=== PATIENT | male | born 1980 | race Two or more races ===

== ENCOUNTER 2024-07-30 18:12 | Inpatient (IN) | payer MEDICAID, SELFPAY ==
[2024-07-30 18:13] VITALS: BMI 30.6
[2024-07-30 18:59] VITALS: BP 165/88; PULSE 81; RESP 17; TEMP 37.2; O2SAT 99
--- NOTE | 2024-07-30 19:15 | XR_ITS ---
Examination: Shoulder,left, 3 views Technique: Shoulder AP internal rotation, AP external rotation, Y view shoulder, 3 views Exam date and time :July 30, 2024 1924 hours INDICATIONS: Seizure today with injury of the shoulder, shoulder pain. FINDINGS: Acute comminuted fracture humeral neck without significant displacement No shoulder dislocation IMPRESSION: Acute comminuted fracture humeral neck
--- NOTE | 2024-07-30 19:15 | XR_ITS ---
Examination: CT brain head without contrast. 2-D sagittal coronal reconstructions Date and time of exam:July 30, 2024 at 2027 hours INDICATIONS: Seizure today, patient fell with injury to the head, head pain CTDI: vol (mGy):52 DLP: (mGycm):1028 Technique: Multiple CT axial sections of the brain have been obtained, 5 mm slice thickness. Contrast has not been administered. 2-D sagittal, coronal reconstructions have been obtained Low dose protocols were performed. One or more of the following dose reduction techniques were used; automated exposure control, adjustment of the mA and/or KV according to patient size, use of iterative reconstruction technique. Findings: No significant ventricular enlargement. Intra-axial or extra-axial hemorrhage density is not seen. No mass effect or midline shift Basal cisterns are not remarkable. Fourth ventricle is midline. Cranial vault intact. Impression: Negative for acute hemorrhage, mass effect or midline shift
[2024-07-30 19:54] LABS: Amphetamine/Methamp Scrn,U Negative (Negative); Barbiturate Screen,Urine Negative (Negative); Benzodiazepines Screen,Urine Negative (Negative); Benzoylecgonine Screen, Ur Negative (Negative); Fentanyl Screen,Urine Negative (Negative); Opiate Screen,Urine Negative (Negative); THC Screen,Urine Negative (Negative)
[2024-07-30 19:54] LABS: Basophils % (Auto) 0 % (0-2.5); Eosinophils % (Auto) 0 % (0-10); Hemoglobin 13.9 g/dL (13.5-16.0); Immature Granulocytes % (Auto) 0 % (0-0); Immature Granulocytes Auto 0.03 Thou/mm3 (0.00-0.00); Lymphocytes # (Auto) 0.5 Thou/mm3 (1.0-4.8); Lymphocytes % (Auto) 6 % (10-50); Mean Corpuscular HGB Conc 35.6 g/dl (31.0-37.0); Mean Corpuscular Hemoglobin 33.2 pg (25.0-35.0); Mean Corpuscular Volume 93 fL (80-100); Monocytes # (Auto) 0.7 Thou/mm3 (0.0-0.8); Monocytes % (Auto) 8 % (0-12); Neutrophils # (Auto) 7.9 Thou/mm3 (1.8-7.7); Neutrophils % (Auto) 86 % (37-80); Nucleated Red Blood Cell % 0 /100 WBC (0); Platelet Count 116 Thou/mm3 (140-440); RDW Standard Deviation 38.8 fL (35.1-43.9); Red Blood Count 4.19 Miln/mm3 (4.50-5.90); White Blood Count 9.3 Thou/mm3 (3.8-10.6)
[2024-07-30 20:25] LABS: Alanine Aminotransferase 75 U/L (10-49); Albumin, Serum 5.2 gm/dL (3.5-5.0); Albumin/Globulin Ratio 1.7 (1.2-2.2); Alcohol, Blood Medical < 3.0 mg/dL (0-10.0); Alkaline Phosphatase 107 U/L (46-116); Ammonia < 10 uMol/L (11-32); Anion Gap 15 (7-16); Aspartate Amino Transferase 91 U/L (0-34); BUN/Creatinine Ratio 8 Ratio (12-20); Bilirubin,Total 1.7 mg/dL (0.3-1.2); Blood Urea Nitrogen 11 mg/dL (9-23); Calcium 9.5 mg/dL (8.3-10.6); Calcium (Corrected) 9.5 mg/dL (8.5-10.1); Carbon Dioxide 28.7 mMol/L (20.0-31.0); Chloride 94 mMol/L (98-107); Creatinine (Component) 1.3 mg/dL (0.6-1.3); Estimated Creatinine Clearance 74.3 mL/min (>60); Glucose 127 mg/dL (74-106); Osmolality,Calculated 277 (275-295); Potassium 4.1 mMol/L (3.4-5.1); Sodium 138 mMol/L (136-145); Total Protein 8.2 gm/dL (5.7-8.2); eGFR > 60 See Note
[2024-07-30 20:31] LABS: INR 1.1 (0.9-1.3); Partial Thromboplastin Time 26.8 Seconds (22.0-36.0); Prothrombin Time 11.8 Seconds (9.0-12.2)
--- NOTE | 2024-07-30 20:51 | EDNOTE_ITS ---
Upper Extremity Injury RME/HPI General Chief Complaint: Extremity Injury, Upper Stated Complaint: LEFT ARM DEFORMITY S/P SEIZURE TODAY Time Seen by Provider: 07/30/24 19:18 Arrival date/time: 07/30/24 18:12 43M with history of alcoholic cirrhosis, HTN, DM, and HLD presents to ED with alcoholic seizures today where he fell and hit his L shoulder. Limitations: no limitations Related Data Home Medications ?Medication ?Instructions ?Recorded ?Confirmed hydrochlorothiazide 50 mg tablet 50 mg PO QDAY 3 07/15/23 lisinopril 40 mg tablet 40 mg PO QDAY 10/25/2207/14 metformin 1,000 mg tablet 1,000 mg PO BID 10/25/22 atorvastatin 20 mg tablet 20 mg PO QDAY 07/15/2307/14 hydralazine 25 mg tablet 25 mg PO QID 07/15/23 Previous Rx's ?Medication ?Instructions ?Recorded folic acid 1 mg tablet 1 mg PO QDAY 3 months #90 ta bs 07/17/23 thiamine HCl (vitamin B1) 100 mg 100 mg PO QDAY 3 giovanna hs #90 tabs 07/17/23 tablet Allergies Allergy/AdvReac Type Severity Reaction Status Date / Time No Known Allergies Allergy Verified 07/30/24 18:15 Review of Systems Review of Systems Systems Reviewed: All systems reviewed, normal except as documented Constitutional Constitutional: Reports system reviewed and no additional complaints, except as documented, Denies fever(s) and Denies headache(s) ENT Ears, Nose, Mouth, and Throat: Denies disequilibrium and Denies headache(s) Cardiovascular Cardiovascular: Reports system reviewed and no additional complaints, except as documented, Denies chest pain and Denies dyspnea Respiratory Respiratory: Reports system reviewed and no additional complaints, except as documented, Denies cough and Denies dyspnea Gastrointestinal Gastrointestinal: Reports system reviewed and no additional complaints, except as documented, Denies abdominal pain, Denies nausea and Denies vomiting Musculoskeletal Musculoskeletal: Reports as per HPI and Reports arthralgias Neurologic Neurologic: Reports system reviewed and no additional complaints, except as documented, Denies confusion, Denies disequilibrium, Denies headache(s) and Reports seizure-like activity Psychiatric Psychiatric: Denies confusion Past Medical History Past Medical History NEUROLOGIC: Positive Seizures CARDIAC: Positive Hypercholesterolemia and Hypertension; Negative Congestive Heart Failure RESPIRATORY: Negative Chronic Obstructive Pulmonary Disease (COPD) GENITOURINARY: Negative Renal Disease ENDOCRINE: Positive Diabetes Mellitus Type 2; Negative Diabetes Mellitus Type 1 Social History SMOKING STATUS: Never smoker ED Exam General Limitations: Present no limitations General appearance: Present alert, in no apparent distress and anxious (tremors) Head Head exam: Present atraumatic Eye Eye exam: Present normal appearance, PERRL and EOMI ENT ENT exam: Present normal exam, normal oropharynx and mucous membranes moist Neck Neck exam: Present normal inspection, full ROM and trachea midline Chest Chest inspection: Present normal inspection and symmetric chest wall rise Respiratory Respiratory exam: Present normal lung sounds bilaterally Cardiovascular Cardiovascular exam: Present regular rate, normal rhythm and normal heart sounds Abdominal Exam Abdominal exam: Present soft and normal bowel sounds Expanded Upper Extremity Exam Shoulder exam: Present tenderness (L) Back Exam Back exam: Present normal inspection and full ROM Neurological Exam Neurological exam: Present alert, oriented X3 and CN II-XII intact Psychiatric Psychiatric exam: Present normal affect and normal mood Skin Skin exam: Present warm, dry, intact and normal color Course Quality Measures none Orders Category Date Time Status COVID-19 Screening Questionnaire NOW Care 07/30/24 22:21 Active Decision to Admit X1 Care 07/30/24 22:21 Completed Insert IV NOW Care 07/30/24 19:[address] head/brain wo con Stat Exams 07/30/24 19:15 Completed XR shoulder LT min 2V Stat Exams 07/30/24 19:15 Completed Alcohol, Blood Medical Stat Lab 07/30/24 19:45 Completed Ammonia Stat Lab 07/30/24 19:45 Completed CBC Stat Lab 07/30/24 19:45 Completed CMP [Comprehensive Metabolic Panel] Stat Lab 07/30/24 19:45 Completed Drug Screen,Urine Stat Lab 07/30/24 19:40 Completed INR [Prothrombin Time with INR] Stat Lab 07/30/24 19:45 Completed Lactate (Lactic Acid) Stat Lab 07/30/24 19:45 Completed PTT [Partial Thromboplastin Time] Stat Lab 07/30/24 19:45 Completed LORazepam [Ativan Inj] Med 07/30/24 19:15 Discontinued 2 mg IVP X1 ONE Morphine Inj Med 07/30/24 22:13 Discontinued 5 mg IVP X1 ONE Ondansetron Inj [Zofran Inj] Med 07/30/24 22:13 Discontinued 4 mg IV X1 ONE Thiamine Inj [Vitamin B-1 Inj] Med 07/30/24 20:00 Discontinued 100 mg IVP X1 ONE Thiamine Inj [Vitamin B-1 Inj] 100 mg Med 07/30/24 19:50 Discontinued Sodium Chloride 0.9% [Ns] 100 ml IV X1 Vital Signs Vital signs: Vital Signs Temperature 98.9 F 07/30/24 18:59 Pulse Rate 81 07/30/24 18:59 Respiratory Rate 17 07/30/24 18:59 Blood Pressure 165/88 H 07/30/24 18:59 Pulse Oximetry (%) 99 07/30/24 18:59 Oxygen Delivery Method Room Air 07/30/24 18:59 O2 at 99% on RA and WNLs Extremity Injury MDM Narrative MDM Narrative:: 43M with history of alcoholic cirrhosis, HTN, DM, and HLD presents to ED with alcoholic seizures today where he fell and hit his L shoulder. Physical exam reveals generalized tremors. L shoulder tenderness and reduced ROM. Patient is afebrile, alert, but anxious. XR reveals L humeral neck fx. CBC, CMP , and coags unremarkable. Lactate normal. Alcohol/drug screen normal. Spoke to padmini Waters, who states humeral neck fx can be handled outpatient and just to give sling. CIWA 11. Spoke to IM resident who reports to Dr. Salcido, who will admit for alcohol withdrawal. Patient data External records reviewed:: [facility] previous records Clinical information provided by:: patient Social determinants that could affect healthcare access:: alcohol use Patient has the following chronic illnesses:: alcoholic cirrhosis, HTN, DM, and HLD How is presenting disease/condition affected by chronic disease/condition?: caused by Evaluation data The following diagnostics were reviewed and interpreted by me:: lab results and radiology exam(s) Lab and/or radiology exams considered but not ordered:: ordered Interpretation Summary: above Medications / Prescriptions Medications or Prescriptions considered but not ordered:: ordered Medication administrations:: Medication Administration History Acetaminophen (Acetaminophen 325 Mg Tablet) 650 mg PO Q6H PRN PRN Reason: Fever >99.5 Stop: 08/29/24 22:58 Acetaminophen (Acetaminophen 325 Mg Tablet) 1,000 mg PO Q6H PRN PRN Reason: PAIN SCALE 1-3 (mild Stop: 08/29/24 22:58 Hydrocodone Bitart/Acetaminophen (Hydrocodone/Apap 5/325 Tablet) 1 tab PO Q6HR PRN PRN Reason: PAIN SCALE 4-10(Mod-Sev Stop: 08/04/24 23:08 Last Admin: 07/30/24 23:37 Dose: 1 tab Documented By: TOMÁS Atorvastatin Calcium (Atorvastatin Calcium 20 Mg Tablet) 20 mg PO HS [facility] Stop: 08/30/24 20:59 Dextrose (Dextrose 50%-Water Inj 50 Ml Syringe) 25 ml IV Q15MIN PRN PRN Reason: BG 50-70 responsive npo pt Stop: 08/29/24 23:02 Dextrose (Dextrose 50%-Water Inj 50 Ml Syringe) 50 ml IV Q15MIN PRN PRN Reason: BG <50 OR BG <70 & pt unresponsive Stop: 08/29/24 23:02 Folic Acid (Folic Acid 1 Mg Tablet) 1 mg PO BID [facility] Stop: 08/05/24 08:59 Glucagon (Glucagon Inj 1 Mg Vial) 1 mg IM Q15MIN PRN PRN Reason: BG <70, and no IV access Insulin Human Lispro (Insulin Lispro (Admelog) 1 Unit/0.01 Ml Unit) 0 unit SC AC [facility]; Protocol Stop: 08/30/24 07:29 Lisinopril (Lisinopril 20 Mg Tablet) 20 mg PO QDAY [facility] Stop: 08/30/24 08:59 Lorazepam (Lorazepam 0.5 Mg Tablet) 0.5 mg PO Q4HR PRN PRN Reason: CIWA Score 2-6 Stop: 08/04/24 22:58 Lorazepam (Lorazepam 2 Mg/Ml Vial) 0.5 mg IV Q2HR PRN PRN Reason: CIWA SCORE 7-13 Stop: 08/04/24 22:58 Lorazepam (Lorazepam 2 Mg/Ml Vial) 1 mg IV Q2HR PRN PRN Reason: CIWA SCORE 14-19 Stop: 08/04/24 22:58 Lorazepam (Lorazepam 2 Mg/Ml Vial) 2 mg IV Q2HR PRN PRN Reason: CIWA SCORE 20-25 Stop: 08/04/24 22:58 Morphine Sulfate (Morphine Sulf Inj 10 Mg/Ml Vial) 2 mg IVP Q4H PRN PRN Reason: BREAKTHROUGH PAIN Ondansetron HCl (Ondansetron Inj 2 Mg/Ml Inj 2 Ml) 4 mg IVP Q6H PRN; Protocol PRN Reason: NAUSEA OR VOMITING Stop: 08/29/24 22:58 Thiamine HCl (Thiamine 100 Mg Tablet) 100 mg PO BID [facility] Stop: 08/05/24 08:59 Discontinued Medications Thiamine HCl 100 mg/ Sodium (Chloride) 101 mls @ 202 mls/hr IV X1 ONE Stop: 07/30/24 20:19 Last Admin: 07/30/24 22:03 Dose: Not Given Documented By: TOMÁS Non-Admin Reason: Discontinued Lorazepam (Lorazepam 2 Mg/Ml Vial) 2 mg IVP X1 ONE Stop: 07/30/24 19:16 Last Admin: 07/30/24 22:29 Dose: 2 mg Documented By: TOMÁS Morphine Sulfate (Morphine Sulf Inj 10 Mg/Ml Vial) 5 mg IVP X1 ONE Stop: 07/30/24 22:14 Last Admin: 07/30/24 22:29 Dose: 5 mg Documented By: TOMÁS Comments: MEDICATION WAS SCANNED BUT WHEN ATTEMPTING TO SAVE, UNABLE TO SAVE DUE TO PHYSICIAN IN CHART. Ondansetron HCl (Ondansetron Inj 2 Mg/Ml Inj 2 Ml) 4 mg IV X1 ONE; Protocol Stop: 07/30/24 22:14 Last Admin: 07/30/24 22:29 Dose: 4 mg Documented By: TOMÁS Thiamine HCl (Thiamine Inj 100 Mg/Ml Vial 2 Ml) 100 mg IVP X1 ONE Stop: 07/30/24 20:01 Last Admin: 07/30/24 22:30 Dose: 100 mg Documented By: TOMÁS above Consultations Consultation(s) initiated? (list below): Yes Diagnosis Upper Extremity Injury Differential Diagnosis: sprain and strain of wrist, fracture of wrist, finger sprain, dislocation of finger, Colles' fracture, fracture of hand, dislocation of shoulder, fracture of humerus, fracture of clavicle and other (alcohol withdrawal) Most likely diagnosis given after review of the tests above:: humerus fx, alcohol withdrawal Admission Indicated Admission indicated?: indicated Admission Request Was there a request for admission?: Yes Admission Attestation Admission request attestation: Discussed case with [Dr. Salcido] from Hospitalist service regarding admission. Discussed patients ED course, exam findings, labs, and radiology results. The H ospitalist [agrees] to accept the patient for admission. Disposition Plan Disposition Plan: Admit Discharge Plan Plan Patient Disposition: Admit Acute Care w/in Hospital Problem List Clinical Impression: Alcohol withdrawal seizure, Fracture, humerus
[2024-07-30 22:03] VITALS: BP 152/96; PULSE 93; RESP 22; TEMP 37; O2SAT 98
[2024-07-30] MEDS: ONDANSETRON INJ 2 MG/ML INJ 2 ML 4 MG IV (22:29)
[2024-07-30] MEDS: MORPHINE SULF INJ 10 MG/ML VIAL 5 MG IVP (22:29)
[2024-07-30] MEDS: LORazepam 2 MG/ML VIAL IVP (22:29)
[2024-07-30] MEDS: THIAMINE INJ 100 MG/ML VIAL 2 ML IVP (22:30)
--- NOTE | 2024-07-30 23:07 | PD.RESHP ---
Documentation for date of: 07/30/24 HPI History of Present Illness Chief complaint: Seizure History of present illness: 43-year-old male with past medical history of hypertension, diabetes, hyperlipidemia, alcohol use disorder who presented to the ED due to seizure. Patient usually drinks around 12 packs of 24 ounce beers however today he only drank 1 beer trying to cut down and developed a seizure around 2 PM no urinary or bowel incontinence however tongue biting was endorsed had a fall and hit his shoulder. Patient also states that this is not his first seizure episode as he had one before about 5 years ago. In the ED imaging was done and Ortho was consulted and fracture of the shoulder however nonoperable at this time. At this time patient denies fever, chills, shortness of breath, chest pain, abdominal pain, nausea, vomiting. Patient will be admitted for alcohol withdrawal seizures. ED course: ED vitals: BP 165/88, HR 81, saturating 99% on room air ED labs: Mild thrombocytopenia, coagulation studies normal, elevated T. bili, elevated AST ALT, ammonia less than 10, U-Tox negative PMHx: As above SX Hx: None Social Hx: Denies cigarette use, denies illicit substances including THC, drinks 6 to 1224 ounce beers and sometimes mixed with liquor Review of Systems Review of Systems Systems Reviewed: All systems reviewed, normal except as documented Narrative Review of Systems: All 12 systems reviewed and found normal less otherwise stated in the HPI Exam Vital Signs Temp Pulse Resp BP Pulse Ox O2 Del Method 98.6 F 93 22 H 152/96 H 98 Room Air 07/30/24 22:03 07/30/24 22:03 07/30/24 22:03 07/30/24 22:03 07/30/24 22:03 07/30/24 22:03 Narrative Exam Physical Exam GENERAL: NAD, AAOx3 HEENT: Moist mucosa. Eyes open, symmetrical, & clear CARDIO: Heart RRR, no obvious murmurs PULM: No noted coughing/dyspnea CTA B/L, no R/W/R GI: Abdomen soft, nondistended, no pain on palpation. BSx4 SKIN/MSK/EXT: Left arm with sling, no pain on palpation. Pedal pulses present B/L NEURO: AAOx3, no focal neuro deficits, able to move all 4 extremities Results: Labs 07/31/24 04:28 07/30/24 19:45 Labs: Short CBC 07/30/24 Range/Units 19:45 WBC 9.3 (3.8-10.6) Thou/mm3 Hgb 13.9 (13.5-16.0) g/dL Hct 39.0 L (41.0-53.0) % Plt Count 116 L (140-440) Thou/mm3 BMP 07/30/24 19:45 Sodium 138 Potassium 4.1 Chloride 94 L Carbon Dioxide 28.7 BUN 11 Creatinine 1.3 Glucose 127 H Calcium 9.5 Liver Function 07/30/24 Range/Units 19:45 Total Bilirubin 1.7 H (0.3-1.2) mg/dL AST 91 H (0-34) U/L ALT 75 H (10-49) U/L Alkaline Phosphatase 107 (46-116) U/L Albumin 5.2 H (3.5-5.0) gm/dL Quality Measures Quality Measures none Medications Home Medications and Allergies Home Medications ?Medication ?Instructions ?Recorded ?Confirmed ?Type hydrochlorothiazide 50 mg tablet 50 mg PO QDAY 10/25/22 07/15/23 History lisinopril 40 mg tablet 40 mg PO QDAY 10/25/22 07/15/23 History metformin 1,000 mg tablet 1,000 mg PO BID 10/25/22 07/15/23 History atorvastatin 20 mg tablet 20 mg PO QDAY 07/15/23 07/15/23 History hydralazine 25 mg tablet 25 mg PO QID 07/15/23 07/15/23 History Allergies Allergy/AdvReac Type Severity Reaction Status Date / Time No Known Allergies Allergy Verified 07/30/24 18:15 Visit Medications Acetaminophen (Acetaminophen 325 Mg Tablet) 650 mg PO Q6H PRN PRN Reason: Fever >99.5 Stop: 08/29/24 22:58 Acetaminophen (Acetaminophen 325 Mg Tablet) 1,000 mg PO Q6H PRN PRN Reason: PAIN SCALE 1-3 (mild Stop: 08/29/24 22:58 Atorvastatin Calcium (Atorvastatin Calcium 20 Mg Tablet) 20 mg PO HS [facility] Stop: 08/30/24 20:59 Dextrose (Dextrose 50%-Water Inj 50 Ml Syringe) 25 ml IV Q15MIN PRN PRN Reason: BG 50-70 responsive npo pt Stop: 08/29/24 23:02 Dextrose (Dextrose 50%-Water Inj 50 Ml Syringe) 50 ml IV Q15MIN PRN PRN Reason: BG <50 OR BG <70 & pt unresponsive Stop: 08/29/24 23:02 Folic Acid (Folic Acid 1 Mg Tablet) 1 mg PO BID [facility] Stop: 08/05/24 08:59 Glucagon (Glucagon Inj 1 Mg Vial) 1 mg IM Q15MIN PRN PRN Reason: BG <70, and no IV access Insulin Human Lispro (Insulin Lispro (Admelog) 1 Unit/0.01 Ml Unit) 0 unit SC AC [facility]; Protocol Stop: 08/30/24 07:29 Lisinopril (Lisinopril 20 Mg Tablet) 20 mg PO QDAY [facility] Stop: 08/30/24 08:59 Lorazepam (Lorazepam 0.5 Mg Tablet) 0.5 mg PO Q4HR PRN PRN Reason: CIWA Score 2-6 Stop: 08/04/24 22:58 Lorazepam (Lorazepam 2 Mg/Ml Vial) 0.5 mg IV Q2HR PRN PRN Reason: CIWA SCORE 7-13 Stop: 08/04/24 22:58 Lorazepam (Lorazepam 2 Mg/Ml Vial) 1 mg IV Q2HR PRN PRN Reason: CIWA SCORE 14-19 Stop: 08/04/24 22:58 Lorazepam (Lorazepam 2 Mg/Ml Vial) 2 mg IV Q2HR PRN PRN Reason: CIWA SCORE 20-25 Stop: 08/04/24 22:58 Ondansetron HCl (Ondansetron Inj 2 Mg/Ml Inj 2 Ml) 4 mg IVP Q6H PRN; Protocol PRN Reason: NAUSEA OR VOMITING Stop: 08/29/24 22:58 Thiamine HCl (Thiamine 100 Mg Tablet) 100 mg PO BID [facility] Stop: 08/05/24 08:59 Discontinued Medications Thiamine HCl 100 mg/ Sodium (Chloride) 101 mls @ 202 mls/hr IV X1 ONE Stop: 07/30/24 20:19 Last Admin: 07/30/24 22:03 Dose: Not Given Lorazepam (Lorazepam 2 Mg/Ml Vial) 2 mg IVP X1 ONE Stop: 07/30/24 19:16 Last Admin: 07/30/24 22:29 Dose: 2 mg Morphine Sulfate (Morphine Sulf Inj 10 Mg/Ml Vial) 5 mg IVP X1 ONE Stop: 07/30/24 22:14 Last Admin: 07/30/24 22:29 Dose: 5 mg Ondansetron HCl (Ondansetron Inj 2 Mg/Ml Inj 2 Ml) 4 mg IV X1 ONE; Protocol Stop: 07/30/24 22:14 Last Admin: 07/30/24 22:29 Dose: 4 mg Thiamine HCl (Thiamine Inj 100 Mg/Ml Vial 2 Ml) 100 mg IVP X1 ONE Stop: 07/30/24 20:01 Last Admin: 07/30/24 22:30 Dose: 100 mg Assessment & Plan Plan 43-year-old male with alcohol use disorder, hypertension, diabetes, hyperlipidemia who presented to the ED due to alcohol withdrawal seizures. Admitted for alcohol withdrawal management. #Alcohol withdrawal seizures #Alcohol use disorder Patient usually drinks around 12 packs of 24 ounce beers however today he only drank 1 beer trying to cut down and developed a seizure around 2 PM no urinary or bowel incontinence however tongue biting was endorsed had a fall and hit his shoulder. Last drink 8 AM 1x24 ounce can of beer 07/30/2024 ? CIWA protocol ? Telemetry ? Seizure precautions ? Folic acid and thiamine ? Neurology consulted, appreciate recs #Hypertension #Hyperlipidemia ? Resume home meds #Diabetes mellitus type 2 Last A1c: ? SSI ? Hypoglycemia protocol in place Health Maintenance: Disposition: Telemetry, alcohol withdrawal Fluids: None Feeding: N.p.o. Thrombo prophylaxis: SCDs Gastric Ulcer prophylaxis: Not indicated CODE STATUS: Full code Case discussed with my attending Dr. Omari Reyez MD PGY-1 Attending Provider Attestation/Addendum I have examined the patient, reviewed labs and imaging findings, discussed the case with the resident(s), and reviewed entered orders. I agree with the plan of care as outlined in this note, with these additional summaries/recommendations: 43-year-old male with history of daily alcohol use, reported seizure disorder however not on any current medications hypertension, hyperlipidemia, DM presented to the ED for left arm pain found to have acute comminuted fracture of left humerus. Per patient, was working today and had one 24 ounce can of beer (3 last night) this morning to fend off withdrawal symptoms and attempt to prevent withdrawal seizure. He reports it helped his symptoms but later on in the day, felt onset of seizure and went to lay down underneath a tree, he does not recall falling or any trauma to his upper extremities. He reports he awoke from seizure, unclear amount of time later, and went home at which time he experienced severe left arm pain and swelling which prompted him to come to the ER. Patient found to have comminuted closed fracture of left humerus, ER discussed case with Ortho who determined nonoperative management. At the time, CIWA score was 11 and placed on CIWA protocol. He will be admitted for further management of acute alcohol withdrawal seizure and pain management for left humeral neck comminuted fracture. Danny Salcido MD
--- NOTE | 2024-07-30 23:09 | PC.NURSE ---
DR. ROGEL NOTIFIED VIA TELEPHONE OF PATIENT'S PAIN LEVEL OF 8/10 AND STATES HE WILL INPUT ORDERS.
[2024-07-30] MEDS: HYDROcodone/APAP 5/325 TABLET 1 TAB PO (23:37)
[2024-07-31] VITALS (7 sets, daily range): BP systolic 121–139; BP diastolic 81–94; PULSE 78–96; RESP 14–21; TEMP 36.4–36.7; O2SAT 96–98; BMI 29.6
[2024-07-31 05:28] LABS: Basophils % (Auto) 1 % (0-2.5); Eosinophils % (Auto) 0 % (0-10); Hematocrit 37.1 % (41.0-53.0); Hemoglobin 12.8 g/dL (13.5-16.0); Immature Granulocytes % (Auto) 0 % (0-0); Immature Granulocytes Auto 0.02 Thou/mm3 (0.00-0.00); Lymphocytes # (Auto) 1.4 Thou/mm3 (1.0-4.8); Lymphocytes % (Auto) 18 % (10-50); Mean Corpuscular HGB Conc 34.5 g/dl (31.0-37.0); Mean Corpuscular Volume 98 fL (80-100); Monocytes # (Auto) 1.1 Thou/mm3 (0.0-0.8); Monocytes % (Auto) 14 % (0-12); Neutrophils # (Auto) 5.1 Thou/mm3 (1.8-7.7); Neutrophils % (Auto) 67 % (37-80); Nucleated Red Blood Cell % 0 /100 WBC (0); Platelet Count 110 Thou/mm3 (140-440); RDW Standard Deviation 41.4 fL (35.1-43.9); Red Blood Count 3.77 Miln/mm3 (4.50-5.90); White Blood Count 7.6 Thou/mm3 (3.8-10.6)
[2024-07-31 05:44] LABS: Glucose Estimated Average 120 mg/dL (80-131); Hemoglobin A1C 5.8 % Hgb (4.8-6.0)
[2024-07-31 05:54] LABS: Alanine Aminotransferase 59 U/L (10-49); Albumin, Serum 4.7 gm/dL (3.5-5.0); Albumin/Globulin Ratio 1.7 (1.2-2.2); Alkaline Phosphatase 92 U/L (46-116); Anion Gap 13 (7-16); Aspartate Amino Transferase 72 U/L (0-34); BUN/Creatinine Ratio 13 Ratio (12-20); Blood Urea Nitrogen 18 mg/dL (9-23); Carbon Dioxide 31.6 mMol/L (20.0-31.0); Chloride 96 mMol/L (98-107); Creatinine (Component) 1.4 mg/dL (0.6-1.3); Globulin 2.7 gm/dL (2.3-3.5); Glucose 96 mg/dL (74-106); Magnesium 1.9 mg/dL (1.6-2.6); Osmolality,Calculated 283 (275-295); Potassium 3.7 mMol/L (3.4-5.1); Sodium 141 mMol/L (136-145); Total Protein 7.4 gm/dL (5.7-8.2); eGFR > 60 See Note
[2024-07-31] MEDS: HYDROcodone/APAP 5/325 TABLET 1 TAB PO ×3 (06:00→19:22)
[2024-07-31] MEDS: Lisinopril 20 MG TABLET PO (08:54)
[2024-07-31] MEDS: FOLIC ACID 1 MG TABLET PO ×2 (08:54→20:06)
[2024-07-31] MEDS: THIAMINE 100 MG TABLET PO ×2 (08:54→20:06)
[2024-07-31] MEDS: RINGERS LACTATED 1000 ML 1,000 ML 100 ML IV (09:32)
[2024-07-31] MEDS: LORazepam 0.5 MG TABLET PO (09:55)
--- NOTE | 2024-07-31 10:56 | ESPR_ITS ---
Documentation for date of: 07/31/24 Subjective Subjective Interval history: Overnight admission. Seen and examined at bedside in telemetry and patient has slight tremor when holding his right arm outstretched. CIWA score noted to be 11 on admission but has been between 1 and 4 afterwards. Pain from left humeral fracture managed well with current regimen and will continue to monitor. Per report, Ortho states that fracture is nonoperable. Vital signs stable. CBC largely unremarkable. CHEM panel shows TEMI for which patient will receive IVF, T. bili of 2, downtrending LFTs. Exam Vital Signs Temp Pulse Resp BP Pulse Ox O2 Del Method 97.6 F 79 14 121/90 H 97 Room Air 07/31/24 08:00 07/31/24 08:54 07/31/24 08:00 07/31/24 08:54 07/31/24 08:00 07/31/24 08:00 Narrative Exam General: AOx3, mild distress from pain, able to speak full sentences, left arm in sling HEENT: NC/AT, mucous membranes moist, bilateral sclera anicteric Cardiovascular: regular rate and rhythm, S1/S2 present, no murmurs appreciated Pulmonary: clear to auscultation bilaterally, no rales/rhonchi/wheezes Abdominal: soft, non-tender, non-distended, no rebound/guarding, normal bowel sounds present Musculoskeletal: left arm swollen with bruising noted in posterior aspect, in sling with limited ROM Skin: bruising noted in posterior LUE Neuro: CN II-XII intact, no focal deficits; slight tremor when holding right arm outstretched Objective Labs 08/02/24 05:19 08/02/24 05:19 Labs: Laboratory Results - last 24 hr 07/30/24 07/30/24 07/31/24 19:40 19:45 04:28 WBC 9.3 7.6 RBC 4.19 L 3.77 L Hgb 13.9 12.8 L Hct 39.0 L 37.1 L MCV 93 98 MCH 33.2 34.0 MCHC 35.6 34.5 RDW Std Deviation 38.8 41.4 Plt Count 116 L 110 L Neut % (Auto) 86 H 67 Lymph % (Auto) 6 L 18 [place] % (Auto) 8 14 H Eos % (Auto) 0 0 Baso % (Auto) 0 1 Neut # (Auto) 7.9 H 5.1 Lymph # (Auto) 0.5 L 1.4 [place] # (Auto) 0.7 1.1 H Eos # (Auto) 0.0 0.0 Baso # (Auto) 0.0 0.0 Immature Gran # (Auto) 0.03 H 0.02 H Absolute Nucleated RBC 0.00 0.00 Immature Gran % 0 0 Nucleated RBC % 0 0 PT 11.8 INR 1.1 APTT 26.8 Sodium 138 141 Potassium 4.1 3.7 Chloride 94 L 96 L Carbon Dioxide 28.7 31.6 H Anion Gap 15 13 BUN 11 18 Creatinine 1.3 1.4 H Estim Creat Clear Calc 74.3 68.0 eGFR > 60 > 60 BUN/Creatinine Ratio 8 L 13 Glucose [address] Glu mg/dL 120 Hemoglobin A1c 5.8 Calculated Osmolality 277 283 Lactic Acid 1.0 Calcium 9.5 9.0 Corrected Calcium 9.5 9.0 Phosphorus 5.0 Magnesium 1.9 Total Bilirubin 1.7 H 2.0 H AST 91 H 72 H ALT 75 H 59 H Alkaline Phosphatase 107 92 Ammonia < 10 L Total Protein 8.2 7.4 Albumin 5.2 H 4.7 D Globulin 3.0 2.7 Albumin/Globulin Ratio 1.7 1.7 Urine Opiates Screen Negative Urine Fentanyl Screen Negative Ur Barbiturates Screen Negative U Amphetamin/Meth Scrn Negative U Benzodiazepines Scrn Negative U Cocaine Metab Screen Negative U Marijuana (THC) Screen Negative Ethyl Alcohol < 3.0 Quality Measures Quality Measures none Assessment & Plan Assessment Current Active Medications: Generic Name Dose Route Start Last Admin Trade Name Bud PRN Reason Stop Dose Admin Acetaminophen 650 mg 07/30/24 22:59 Acetaminophen 325 Mg Tablet PO 08/29/24 22:58 Q6H PRN Fever >99.5 Acetaminophen 1,000 mg 07/31/24 07:02 Acetaminophen 500 Mg Tablet PO 08/29/24 22:58 Q6H PRN PAIN SCALE 1-3 (mild Hydrocodone Bitart/Acetaminophen 1 tab 07/30/24 23:09 07/31/24 06:00 Hydrocodone/Apap 5/325 Tablet PO 08/04/24 23:08 1 tab Q6HR PRN Administration PAIN SCALE 4-10(Mod-Sev Atorvastatin Calcium 20 mg 07/31/24 21:00 Atorvastatin Calcium 20 Mg Tablet PO 08/30/24 20:59 HS EDDIE Dextrose 25 ml 07/30/24 23:03 Dextrose 50%-Water Inj 50 Ml Syringe IV 08/29/24 23:02 Q15MIN PRN BG 50-70 responsive npo pt Dextrose 50 ml 07/30/24 23:03 Dextrose 50%-Water Inj 50 Ml Syringe IV 08/29/24 23:02 Q15MIN PRN BG <50 OR BG <70 & pt unresponsive Folic Acid 1 mg 07/31/24 09:00 07/31/24 08:54 Folic Acid 1 Mg Tablet PO 08/05/24 08:59 1 mg BID EDDIE Administration Glucagon 1 mg 07/30/24 23:03 Glucagon Inj 1 Mg Vial IM Q15MIN PRN BG <70, and no IV access Lactated Ringer's 1,000 mls @ 100 mls/hr 07/31/24 07:41 07/31/24 09:32 Lactated Ringers IV 07/31/24 17:40 100 mls/hr .Q10H ONE Administration Insulin Human Lispro 0 unit 07/31/24 07:30 07/31/24 07:45 Insulin Lispro (Admelog) 1 Unit/0.01 Ml Unit SC 08/30/24 07:29 Not Given AC [facility] Protocol Lisinopril 20 mg 07/31/24 09:00 07/31/24 08:54 Lisinopril 20 Mg Tablet PO 08/30/24 08:59 20 mg QDAY EDDIE Administration Lorazepam 0.5 mg 07/30/24 22:59 07/31/24 09:55 Lorazepam 0.5 Mg Tablet PO 08/04/24 22:58 0.5 mg Q4HR PRN Administration CIWA Score 2-6 Lorazepam 0.5 mg 07/30/24 22:59 Lorazepam 2 Mg/Ml Vial IV 08/04/24 22:58 Q2HR PRN CIWA SCORE 7-13 Lorazepam 1 mg 07/30/24 22:59 Lorazepam 2 Mg/Ml Vial IV 08/04/24 22:58 Q2HR PRN CIWA SCORE 14-19 Lorazepam 2 mg 07/30/24 22:59 Lorazepam 2 Mg/Ml Vial IV 08/04/24 22:58 Q2HR PRN CIWA SCORE 20-25 Morphine Sulfate 2 mg 07/30/24 23:09 Morphine Sulf Inj 10 Mg/Ml Vial IVP Q4H PRN BREAKTHROUGH PAIN Ondansetron HCl 4 mg 07/30/24 22:59 Ondansetron Inj 2 Mg/Ml Inj 2 Ml IVP 08/29/24 22:58 Q6H PRN NAUSEA OR VOMITING Protocol Thiamine HCl 100 mg 07/31/24 09:00 07/31/24 08:54 Thiamine 100 Mg Tablet PO 08/05/24 08:59 100 mg BID EDDIE Administration Plan Papi Irvin is a 43-year-old male with past medical history of hypertension, hyperlipidemia, type 2 diabetes mellitus who presented to the ED for seizures in the setting of alcohol withdrawal and admitted for management of the same. #Alcohol withdrawal #Alcohol use disorder #Seizure in setting of alcohol withdrawal Usually drinks ~12 packs of 24 ounce beers daily but drank 1 beer on 07/30 as he is trying to cut down. Reported to have experienced a seizure around 2 PM with no urinary or bowel incontinence but endorsed tongue biting and fall that likely led to shoulder injury. Last drink was a 24 hour beer at 8 AM on 07/30/2024. ? CIWA protocol ? Telemetry ? Seizure precautions ? Folic acid and thiamine ? Neurology consulted, appreciate recs #Acute kidney injury Initial creatinine of 1.3 with a baseline that appears to be around 1. ? LR at 100 cc/h ? Avoid nephrotoxic agents if possible, renally dose medications #Hypertension ? Lisinopril 20 mg p.o. daily -> will hold for now given TEMI #Hyperlipidemia ? Atorvastatin 20 mg p.o. at bedtime #Type 2 diabetes mellitus A1c 5.8% on 07/31. ? SSI ? Hypoglycemia protocol in place Hospital management: Disposition: Telemetry for alcohol withdrawal and TEMI Fluids: LR at 100 cc/h Diet: Carbohydrate consistent Lines: PIV DVT prophylaxis: SCDs CODE STATUS: full code ----- Plan discussed with attending physician Dr. Lorenzo Rodríguez MD PGY-1 Internal Medicine Attending Provider Attestation/Addendum 43-year-old with hypertension, hyperlipidemia, type 2 diabetes mellitus and alcohol use disorder who presented for alcohol withdrawal and alcohol withdrawal seizures. CT head is negative and plan to continue CIWA. I reviewed above note and agree with findings and plans. I have also personally examined the patient with medicine team and went over assessment and plan with medical team including administration internship and resident physician.
--- NOTE | 2024-07-31 10:59 | PC.SS ---
Patient Papi Irvin is a 43 Year old male admitted for Alcohol Withdrawal. SS met with patient at bedside to discuss discharge plan and verify demographic information. Patient reports he lives at home with his , Raya Dennis [phone] who is also his surrogate decision maker. choice of pharmacy is [facility]. Prior to admission patient did not utilize any source of DME and was able to complete all ADL's independently. PCP is Per Reyez. SS inquired about ETOH resources and patient agreeable, SS left community resources at bedside. Patient reports he drinks X3 tall cans a day and at times drinks more. Patient reports he will return back home when medically cleared. Discharge plan: Home Next of kin: , Raya Cordero [phone]
--- NOTE | 2024-07-31 13:54 | PC.PT ---
PT eval only. Patient is I with transfers and ambulation without AD.
--- NOTE | 2024-07-31 14:10 | PC.SS ---
SS follo up note; Patient is being monitored, discharge home tomorrow.
[2024-07-31] MEDS: MORPHINE SULF INJ 10 MG/ML VIAL 2 MG IVP (16:54)
--- NOTE | 2024-07-31 17:49 | PC.NURSE ---
Attempted to complete med reconciliation. Pt unable to recall the names of his medications and does not have someone to bring them in.
[2024-07-31] MEDS: LORazepam 2 MG/ML VIAL 0.5 MG IV ×2 (18:12→22:05)
[2024-07-31] MEDS: ATORVASTATIN CALCIUM 20 MG TABLET PO (20:06)
--- NOTE | 2024-07-31 21:10 | ESPR_ITS ---
Documentation for date of: 07/31/24 Subjective Subjective Interval history: Patient was seen in telemetry today. No seizures reported after admission. No tremors either. able to feed himself. Exam - Neurology Vital Signs Temp Pulse Resp BP Pulse Ox O2 Del Method 98.1 F 95 20 132/81 H 96 Room Air 07/31/24 20:00 07/31/24 20:00 07/31/24 20:00 07/31/24 20:00 07/31/24 20:00 07/31/24 20:00 Narrative Exam GENERAL APPEARANCE: Well developed, well-nourished in no acute distress. HEENT: Normocephalic, atraumatic, extraocular movements intact. Pupils: Equal reacting to light and accommodation NECK: Supple, no JVD or bruits. CARDIOVASULAR: Heart: S1, S2 heard, regular without S3-S4 or murmur no rubs or gallops. LUNGS/CHEST: Clear to auscultation bilaterally. No rails, rhonchi, or wheezing. Normal inspection. ABDOMEN: Soft, nontender, with normal bowel sounds. No pulsatile masses. No rebound, rigidity, or guarding. Normal inspection and palpation. EXTREMITIES: Normal inspection and palpation. No edema, clubbing or cyanosis. SKIN: Warm and dry without rashes. Normal inspection. MUSCULOSKELETAL: No cervical, thoracic, lumbar or midline bony tenderness. Normal inspection. NEURO: Alert, awake and oriented x3. Cranial nerves: II through XII grossly intact. Speech and language: Normal with no dysarthria or dysphasia. Motor system: Tone and bulk: Normal: Strength: 5 out of 5 in all 4 extremities, restricted ROM in the left shoulder from pain and echymosis; Deep tendon reflexes: 1+ bilaterally symmetrical. Plantar reflex: Downgoing bilaterally. Sensory system: Intact to all modalities of sensation bilaterally. Coordination: Intact to [id number] and yinx-[id number] test bilaterally. No ataxia, no dysmetria, or dysdiadochokinesia noted. No intention tremors noted. Gait: Not tested. No signs of meningeal irritation noted. PSYCHIATRIC: Normal mood and affect. Objective Labs 08/03/24 05:17 08/03/24 05:17 Labs: Laboratory Results - last 24 hr 07/31/24 04:28 WBC 7.6 RBC 3.77 L Hgb 12.8 L Hct 37.1 L MCV 98 MCH 34.0 MCHC 34.5 RDW Std Deviation 41.4 Plt Count 110 L Neut % (Auto) 67 Lymph % (Auto) 18 [place] % (Auto) 14 H Eos % (Auto) 0 Baso % (Auto) 1 Neut # (Auto) 5.1 Lymph # (Auto) 1.4 [place] # (Auto) 1.1 H Eos # (Auto) 0.0 Baso # (Auto) 0.0 Immature Gran # (Auto) 0.02 H Absolute Nucleated RBC 0.00 Immature Gran % 0 Nucleated RBC % 0 Sodium 141 Potassium 3.7 Chloride 96 L Carbon Dioxide 31.6 H Anion Gap 13 BUN 18 Creatinine 1.4 H Estim Creat Clear Calc 68.0 eGFR > 60 BUN/Creatinine Ratio [address] Glu mg/dL 120 Hemoglobin A1c 5.8 Calculated Osmolality 283 Calcium 9.0 Corrected Calcium 9.0 Phosphorus 5.0 Magnesium 1.9 Total Bilirubin 2.0 H AST 72 H ALT 59 H Alkaline Phosphatase 92 Total Protein 7.4 Albumin 4.7 D Globulin 2.7 Albumin/Globulin Ratio 1.7 Assessment & Plan Assessment and plan (1) Alcohol withdrawal seizure: Status: Acute Assessment and plan: no sz after admission continue with CIWA protocol, thiamine and folic acid sz precautions. (2) Fracture, humerus: Status: Acute Assessment and plan: inoperable per Ortho continue with pain control (3) Hypertension: Status: Acute Assessment and plan: continue aggressive BP mgt (4) Diabetes mellitus: Status: Acute Assessment and plan: under control as per the last A1C under 6
[2024-08-01] VITALS (8 sets, daily range): BP systolic 124–147; BP diastolic 89–101; PULSE 88–117; RESP 16–27; TEMP 36.4–37.3; O2SAT 95–99; BMI 29.6
[2024-08-01] MEDS: LORazepam 2 MG/ML VIAL 0.5 MG IV ×3 (01:49→17:27)
[2024-08-01] MEDS: HYDROcodone/APAP 5/325 TABLET 1 TAB PO ×2 (03:25→19:10)
[2024-08-01] MEDS: LORazepam 2 MG/ML VIAL 1 MG IV (03:53)
--- NOTE | 2024-08-01 03:57 | PC.NURSE ---
pt's MIMA Howard. Dr. Light in the unit and made aware. prn ativan 1 mg IV given as ordered.
[2024-08-01] MEDS: LORazepam 2 MG/ML VIAL 1 MG IVP (04:54)
--- NOTE | 2024-08-01 05:44 | PC.NURSE ---
pt's CIWA 20. pt confused, attempts to get out of bed, redirected but poor outcome, DR. Martell notified and will put in new order. RN stays at bedside.
[2024-08-01 05:50] LABS: Basophils % (Auto) 1 % (0-2.5); Eosinophils # (Auto) 0.1 Thou/mm3 (0.0-0.5); Eosinophils % (Auto) 1 % (0-10); Hematocrit 32.9 % (41.0-53.0); Hemoglobin 11.9 g/dL (13.5-16.0); Immature Granulocytes % (Auto) 1 % (0-0); Immature Granulocytes Auto 0.04 Thou/mm3 (0.00-0.00); Lymphocytes # (Auto) 1.1 Thou/mm3 (1.0-4.8); Lymphocytes % (Auto) 14 % (10-50); Mean Corpuscular HGB Conc 36.2 g/dl (31.0-37.0); Mean Corpuscular Hemoglobin 33.5 pg (25.0-35.0); Mean Corpuscular Volume 93 fL (80-100); Monocytes % (Auto) 13 % (0-12); Neutrophils # (Auto) 5.5 Thou/mm3 (1.8-7.7); Neutrophils % (Auto) 71 % (37-80); Nucleated Red Blood Cell % 0 /100 WBC (0); Platelet Count 121 Thou/mm3 (140-440); RDW Standard Deviation 38.4 fL (35.1-43.9); Red Blood Count 3.55 Miln/mm3 (4.50-5.90); White Blood Count 7.8 Thou/mm3 (3.8-10.6)
[2024-08-01] MEDS: SODIUM CHLORIDE 0.9% IVP (05:54)
[2024-08-01] MEDS: PHENOBARBITAL 130 MG IVP (05:54)
[2024-08-01] MEDS: LORazepam 2 MG/ML VIAL IV (06:36)
[2024-08-01 06:37] LABS: Alanine Aminotransferase 47 U/L (10-49); Albumin, Serum 4.6 gm/dL (3.5-5.0); Albumin/Globulin Ratio 1.8 (1.2-2.2); Alkaline Phosphatase 97 U/L (46-116); Anion Gap 12 (7-16); BUN/Creatinine Ratio 17 Ratio (12-20); Bilirubin,Total 1.7 mg/dL (0.3-1.2); Blood Urea Nitrogen 15 mg/dL (9-23); Calcium 9.6 mg/dL (8.3-10.6); Calcium (Corrected) 9.6 mg/dL (8.5-10.1); Chloride 91 mMol/L (98-107); Creatinine (Component) 0.9 mg/dL (0.6-1.3); Estimated Creatinine Clearance 105.7 mL/min (>60); Globulin 2.5 gm/dL (2.3-3.5); Glucose 150 mg/dL (74-106); Magnesium 1.3 mg/dL (1.6-2.6); Osmolality,Calculated 264 (275-295); Phosphorous 2.9 mg/dL (2.4-5.1); Potassium 3.2 mMol/L (3.4-5.1); Sodium 130 mMol/L (136-145); Total Protein 7.1 gm/dL (5.7-8.2); eGFR > 60 See Note
[2024-08-01] MEDS: POTASSIUM CHLORIDE 20 mEq TABCR 40 MEQ PO (07:56)
[2024-08-01] MEDS: GABAPENTIN 100 MG CAPSULE PO ×3 (07:56→21:39)
[2024-08-01] MEDS: Magnesium Sulfate 4 GM Ivpb 4 GM/50 ML BAG IV (07:56)
[2024-08-01] MEDS: FOLIC ACID 1 MG TABLET PO ×2 (08:00→21:39)
[2024-08-01] MEDS: THIAMINE 100 MG TABLET PO ×2 (08:00→21:40)
[2024-08-01] MEDS: RINGERS LACTATED 1000 ML 1,000 ML 100 ML IV ×2 (09:56→20:08)
--- NOTE | 2024-08-01 12:09 | ESPR_ITS ---
<Statement entered by uLz Rogers MD - 08/01/24 14:26> I Luz Rogers MD reviewed the note and agree with the resident's assessment & plan with exceptions as below. I have personally reviewed labs, imaging, home meds/prior records, examined the patient, formulated and discussed management plan with the IM team. 43-year-old M with Hx of DM presented to ED with seizure-like activity and it to be in alcohol withdrawal. Currently on CIWA protocol requiring phenobarbital and IV lorazepam. Patient was noted to be hypoxic during apneic episodes while asleep. Will start on CPAP therapy likely due to HUMPHREY, discontinue phenobarbital, will use IV lorazepam for CIWA. Continue to provide supportive care, IVF, thiamine and folic acid. Documentation for date of: 08/01/24 Subjective Subjective Interval history: The patient was seen and examined at the bedside. Overnight, the patient had a CIWA score of 23. Phenobarbital was administered by the specialty food products supervisor, resulting in significant improvement in withdrawal symptoms. Upon our evaluation, the patient was comfortably sleeping in bed, intermittently opening his eyes and responding to some questions. The bedside nurse observed episodes suggestive of sleep apnea. A CPAP order has been placed. The patient is not currently on maintenance IV fluids. CIWA protocol will be continued. Renal function has improved, and the patient had adequate urine output. Gabapentin 100 mg three times daily will be initiated as a longer-acting agent to help manage alcohol withdrawal. The plan is to gradually taper medications as the patient stabilizes. Hemodynamics will continue to be monitored closely. Ativan will be administered as needed per CIWA protocol. Exam Vital Signs Temp Pulse Resp BP Pulse Ox O2 Del Method 98.1 F 96 27 H 128/91 H 99 Room Air 08/01/24 11:57 08/01/24 11:57 08/01/24 11:57 08/01/24 11:57 08/01/24 11:57 08/01/24 11:57 Narrative Exam General: AOx3, comfortably laying in bed,, able to speak full sentences, left arm in sling HEENT: NC/AT, mucous membranes moist, bilateral sclera anicteric Cardiovascular: regular rate and rhythm, S1/S2 present, no murmurs appreciated Pulmonary: clear to auscultation bilaterally, no rales/rhonchi/wheezes Abdominal: soft, non-tender, non-distended, no rebound/guarding, normal bowel sounds present Musculoskeletal: left arm swollen with bruising noted in posterior aspect, in sling with limited ROM Skin: bruising noted in posterior LUE Neuro: CN II-XII intact, no focal deficits; slight tremor when holding right arm outstretched Objective Labs 08/01/24 05:15 08/01/24 05:15 Labs: Laboratory Results - last 24 hr 08/01/24 05:15 WBC 7.8 RBC 3.55 L Hgb 11.9 L Hct 32.9 L MCV 93 MCH 33.5 MCHC 36.2 RDW Std Deviation 38.4 Plt Count 121 L Neut % (Auto) 71 Lymph % (Auto) 14 [place] % (Auto) 13 H Eos % (Auto) 1 Baso % (Auto) 1 Neut # (Auto) 5.5 Lymph # (Auto) 1.1 [place] # (Auto) 1.0 H Eos # (Auto) 0.1 Baso # (Auto) 0.0 Immature Gran # (Auto) 0.04 H Absolute Nucleated RBC 0.00 Immature Gran % 1 H Nucleated RBC % 0 Sodium 130 L D Potassium 3.2 L D Chloride 91 L Carbon Dioxide 27.0 Anion Gap 12 BUN 15 Creatinine 0.9 D Estim Creat Clear Calc 105.7 eGFR > 60 BUN/Creatinine Ratio 17 Glucose 150 H D Calculated Osmolality 264 L Calcium 9.6 Corrected Calcium 9.6 Phosphorus 2.9 Magnesium 1.3 L Total Bilirubin 1.7 H ALT 47 Alkaline Phosphatase 97 Total Protein 7.1 Albumin 4.6 Globulin 2.5 Albumin/Globulin Ratio 1.8 Quality Measures Quality Measures none Assessment & Plan Assessment Current Active Medications: Generic Name Dose Route Start Last Admin Trade Name Freq PRN Reason Stop Dose Admin Acetaminophen 650 mg 07/30/24 22:59 Acetaminophen 325 Mg Tablet PO 08/29/24 22:58 Q6H PRN Fever >99.5 Acetaminophen 1,000 mg 07/31/24 07:02 Acetaminophen 500 Mg Tablet PO 08/29/24 22:58 Q6H PRN PAIN SCALE 1-3 (mild Hydrocodone Bitart/Acetaminophen 1 tab 07/30/24 23:09 08/01/24 03:25 Hydrocodone/Apap 5/325 Tablet PO 08/04/24 23:08 1 tab Q6HR PRN Administration PAIN SCALE 4-10(Mod-Sev Atorvastatin Calcium 20 mg 07/31/24 21:00 07/31/24 20:06 Atorvastatin Calcium 20 Mg Tablet PO 08/30/24 20:59 20 mg HS EDDIE Administration Dextrose 25 ml 07/30/24 23:03 Dextrose 50%-Water Inj 50 Ml Syringe IV 08/29/24 23:02 Q15MIN PRN BG 50-70 responsive npo pt Dextrose 50 ml 07/30/24 23:03 Dextrose 50%-Water Inj 50 Ml Syringe IV 08/29/24 23:02 Q15MIN PRN BG <50 OR BG <70 & pt unresponsive Folic Acid 1 mg 07/31/24 09:00 08/01/24 08:00 Folic Acid 1 Mg Tablet PO 08/05/24 08:59 1 mg BID EDDIE Administration Gabapentin 100 mg 08/01/24 07:45 08/01/24 07:56 Gabapentin 100 Mg Capsule PO 08/31/24 07:44 100 mg TID EDDIE Administration Glucagon 1 mg 07/30/24 23:03 Glucagon Inj 1 Mg Vial IM Q15MIN PRN BG <70, and no IV access Lactated Ringer's 1,000 mls @ 100 mls/hr 08/01/24 08:23 08/01/24 09:56 Lactated Ringers IV 08/01/24 18:22 100 mls/hr .Q10H ONE Administration Insulin Human Lispro 0 unit 07/31/24 07:30 08/01/24 07:33 Insulin Lispro (Admelog) 1 Unit/0.01 Ml Unit SC 08/30/24 07:29 Not Given AC EDDIE Protocol Lactulose 10 gm 08/01/24 11:51 Lactulose Syrup 20 Gm/30 Ml Udc PO 08/31/24 20:59 BID PRN constipation Protocol Lisinopril 20 mg 07/31/24 09:00 07/31/24 08:54 Lisinopril 20 Mg Tablet PO 08/30/24 08:59 20 mg QDAY EDDIE Administration Lorazepam 0.5 mg 07/30/24 22:59 07/31/24 09:55 Lorazepam 0.5 Mg Tablet PO 08/04/24 22:58 0.5 mg Q4HR PRN Administration CIWA Score 2-6 Lorazepam 0.5 mg 07/30/24 22:59 08/01/24 01:49 Lorazepam 2 Mg/Ml Vial IV 08/04/24 22:58 0.5 mg Q2HR PRN Administration CIWA SCORE 7-13 Lorazepam 1 mg 07/30/24 22:59 08/01/24 03:53 Lorazepam 2 Mg/Ml Vial IV 08/04/24 22:58 1 mg Q2HR PRN Administration CIWA SCORE 14-19 Lorazepam 2 mg 07/30/24 22:59 08/01/24 06:36 Lorazepam 2 Mg/Ml Vial IV 08/04/24 22:58 2 mg Q2HR PRN Administration CIWA SCORE 20-25 Morphine Sulfate 2 mg 07/30/24 23:09 07/31/24 16:54 Morphine Sulf Inj 10 Mg/Ml Vial IVP 2 mg Q4H PRN Administration BREAKTHROUGH PAIN Ondansetron HCl 4 mg 07/30/24 22:59 Ondansetron Inj 2 Mg/Ml Inj 2 Ml IVP 08/29/24 22:58 Q6H PRN NAUSEA OR VOMITING Protocol Thiamine HCl 100 mg 07/31/24 09:00 08/01/24 08:00 Thiamine 100 Mg Tablet PO 08/05/24 08:59 100 mg BID EDDIE Administration Plan Papi Irvin is a 43-year-old male with past medical history of hypertension, hyperlipidemia, type 2 diabetes mellitus who presented to the ED for seizures in the setting of alcohol withdrawal and admitted for management further management #Alcohol withdrawal #Alcohol use disorder #Seizure in setting of alcohol withdrawal Usually drinks ~12 packs of 24 ounce beers daily but drank 1 beer on 07/30 as he is trying to cut down. Reported to have experienced a seizure around 2 PM with no urinary or bowel incontinence but endorsed tongue biting and fall that likely led to shoulder injury. Last drink was a 24 hour beer at 8 AM on 07/30/2024. ? CIWA protocol ? Patient overnight was given 1 push of phenobarbital, currently started Gabapentin 100 mg three times daily will be initiated as a longer-acting agent to help manage alcohol withdrawal. The plan is to gradually taper medications as the patient stabilizes ? Seizure precautions ? Folic acid and thiamine ? Neurology consulted, appreciate recs #Acute kidney injury-resolved Initial creatinine of 1.3 with a baseline that appears to be around 1. ? Continue maintenance fluids ? Avoid nephrotoxic agents if possible, renally dose medications #Hypertension ? Lisinopril 20 mg p.o. daily -> will hold for now given TEMI #Hyperlipidemia ? Atorvastatin 20 mg p.o. at bedtime #Type 2 diabetes mellitus A1c 5.8% on 07/31. ? SSI ? Hypoglycemia protocol in place Hospital management: Disposition: Telemetry for alcohol withdrawal and TEMI Fluids: IVF maintenance Diet: Carbohydrate consistent Lines: PIV DVT prophylaxis: SCDs CODE STATUS: full code Patient care was discussed with attending physician Dr. Ken Shabazz MD PGY-2 I have carefully reviewed this document. Due to imperfections in the voice software, there could be grammatical errors including phonetic/typographic errors. This in no way compromises the medical care the patient is receiving
[2024-08-01] MEDS: LACTULOSE SYRUP 20 GM/30 ML UDC 10 GM PO (12:51)
[2024-08-01] MEDS: LORazepam 0.5 MG TABLET PO (21:39)
[2024-08-01] MEDS: ATORVASTATIN CALCIUM 20 MG TABLET PO (21:39)
[2024-08-02] VITALS (11 sets, daily range): BP systolic 141–169; BP diastolic 84–103; PULSE 81–111; RESP 11–96; TEMP 36.8–37.9; O2SAT 98–100; BMI 29.6
[2024-08-02] MEDS: MORPHINE SULF INJ 10 MG/ML VIAL 2 MG IVP (00:25)
--- NOTE | 2024-08-02 02:35 | PC.NURSE ---
pt have episode of sleep apnea SP02 drops to 50's briefly and come back up to 100% on 2 lpm O2 NC. pt easily awaken to call of name. call light within reach. telesitter in room.
[2024-08-02] MEDS: ACETAMINOPHEN 500 MG TABLET 1000 MG PO (03:35)
[2024-08-02] MEDS: GABAPENTIN 100 MG CAPSULE PO ×3 (05:44→21:19)
[2024-08-02] MEDS: RINGERS LACTATED 1000 ML 1,000 ML 100 ML IV (05:44)
[2024-08-02] MEDS: LORazepam 0.5 MG TABLET PO (05:44)
[2024-08-02 06:25] LABS: Basophils # (Auto) 0.1 Thou/mm3 (0.0-0.2); Basophils % (Auto) 1 % (0-2.5); Eosinophils # (Auto) 0.1 Thou/mm3 (0.0-0.5); Eosinophils % (Auto) 1 % (0-10); Hematocrit 32.7 % (41.0-53.0); Hemoglobin 11.7 g/dL (13.5-16.0); Immature Granulocytes % (Auto) 0 % (0-0); Immature Granulocytes Auto 0.02 Thou/mm3 (0.00-0.00); Lymphocytes # (Auto) 1.6 Thou/mm3 (1.0-4.8); Lymphocytes % (Auto) 21 % (10-50); Mean Corpuscular HGB Conc 35.8 g/dl (31.0-37.0); Mean Corpuscular Hemoglobin 33.6 pg (25.0-35.0); Mean Corpuscular Volume 94 fL (80-100); Monocytes # (Auto) 1.2 Thou/mm3 (0.0-0.8); Monocytes % (Auto) 15 % (0-12); Neutrophils # (Auto) 4.7 Thou/mm3 (1.8-7.7); Neutrophils % (Auto) 62 % (37-80); Nucleated Red Blood Cell % 0 /100 WBC (0); Platelet Count 118 Thou/mm3 (140-440); Red Blood Count 3.48 Miln/mm3 (4.50-5.90); White Blood Count 7.6 Thou/mm3 (3.8-10.6)
[2024-08-02 07:16] LABS: Alanine Aminotransferase 39 U/L (10-49); Albumin, Serum 4.3 gm/dL (3.5-5.0); Albumin/Globulin Ratio 1.7 (1.2-2.2); Alkaline Phosphatase 83 U/L (46-116); Anion Gap 11 (7-16); BUN/Creatinine Ratio 14 Ratio (12-20); Bilirubin,Total 1.7 mg/dL (0.3-1.2); Blood Urea Nitrogen 11 mg/dL (9-23); Calcium 9.2 mg/dL (8.3-10.6); Calcium (Corrected) 9.2 mg/dL (8.5-10.1); Carbon Dioxide 30.7 mMol/L (20.0-31.0); Chloride 96 mMol/L (98-107); Creatinine (Component) 0.8 mg/dL (0.6-1.3); Globulin 2.5 gm/dL (2.3-3.5); Glucose 107 mg/dL (74-106); Magnesium 1.5 mg/dL (1.6-2.6); Osmolality,Calculated 275 (275-295); Phosphorous 2.9 mg/dL (2.4-5.1); Potassium 3.7 mMol/L (3.4-5.1); Sodium 138 mMol/L (136-145); Total Protein 6.8 gm/dL (5.7-8.2); eGFR > 60 See Note
[2024-08-02] MEDS: FOLIC ACID 1 MG TABLET PO ×2 (08:07→21:20)
[2024-08-02] MEDS: THIAMINE 100 MG TABLET PO ×2 (08:07→21:19)
[2024-08-02] MEDS: LORazepam 2 MG/ML VIAL 0.5 MG IV (08:08)
[2024-08-02] MEDS: Lisinopril 20 MG TABLET PO (09:10)
[2024-08-02] MEDS: Magnesium Sulfate 2 GM Ivpb 2 GM/50 ML BAG IV (09:10)
--- NOTE | 2024-08-02 10:39 | PC.SS ---
SS follow up note: Patient will discharge home possibly tomorrow.
--- NOTE | 2024-08-02 12:01 | ESPR_ITS ---
<Statement entered by Randy Ventura MD - 08/14/24 14:04> I reviewed above note and agree with findings and plans. I have also personally examined the patient with medicine team and went over assessment and plan with medical team including diversity intern and resident physician. Documentation for date of: 08/02/24 Subjective Subjective Interval history: Patient was seen and examined at bedside. No acute overnight events. Patient is on gabapentin 100 3 times daily, today in the morning CIWA was 9, will continue CIWA protocol. Patient is having a good urine output, renal panel within normal limit, fluid was stopped, we will restart lisinopril to control blood pressure as renal panel currently within normal limits. Magnesium was low which was replaced, today upon my evaluation patient was hemodynamically stable, comfortably laying in bed. Will continue current management anticipate discharge in next 24 hours. Exam Vital Signs Temp Pulse Resp BP Pulse Ox O2 Del Method O2 Flow Rate 98.4 F 84 19 156/98 H 99 Nasal Cannula 2 08/02/24 08:00 08/02/24 09:10 08/02/24 08:00 08/02/24 09:10 08/02/24 08:00 08/02/24 08:00 08/02/24 08:00 Narrative Exam General: AOx3, comfortably laying in bed,, able to speak full sentences, left arm in sling HEENT: NC/AT, mucous membranes moist, bilateral sclera anicteric Cardiovascular: regular rate and rhythm, S1/S2 present, no murmurs appreciated Pulmonary: clear to auscultation bilaterally, no rales/rhonchi/wheezes Abdominal: soft, non-tender, non-distended, no rebound/guarding, normal bowel sounds present Musculoskeletal: left arm swollen with bruising noted in posterior aspect, in sling with limited ROM Skin: bruising noted in posterior LUE Neuro: CN II-XII intact, no focal deficits; slight tremor when holding right arm outstretched Objective Labs 08/02/24 05:19 08/02/24 05:19 Labs: Laboratory Results - last 24 hr 08/02/24 05:19 WBC 7.6 RBC 3.48 L Hgb 11.7 L Hct 32.7 L MCV 94 MCH 33.6 MCHC 35.8 RDW Std Deviation 38.0 Plt Count 118 L Neut % (Auto) 62 Lymph % (Auto) 21 [place] % (Auto) 15 H Eos % (Auto) 1 Baso % (Auto) 1 Neut # (Auto) 4.7 Lymph # (Auto) 1.6 [place] # (Auto) 1.2 H Eos # (Auto) 0.1 Baso # (Auto) 0.1 Immature Gran # (Auto) 0.02 H Absolute Nucleated RBC 0.00 Immature Gran % 0 Nucleated RBC % 0 Sodium 138 Potassium 3.7 D Chloride 96 L Carbon Dioxide 30.7 Anion Gap 11 BUN 11 Creatinine 0.8 Estim Creat Clear Calc 119.0 eGFR > 60 BUN/Creatinine Ratio 14 Glucose 107 H Calculated Osmolality 275 Calcium 9.2 Corrected Calcium 9.2 Phosphorus 2.9 Magnesium 1.5 L Total Bilirubin 1.7 H ALT 39 Alkaline Phosphatase 83 Total Protein 6.8 Albumin 4.3 Globulin 2.5 Albumin/Globulin Ratio 1.7 Quality Measures Quality Measures none Assessment & Plan Assessment Current Active Medications: Generic Name Dose Route Start Last Admin Trade Name Freq PRN Reason Stop Dose Admin Acetaminophen 650 mg 07/30/24 22:59 Acetaminophen 325 Mg Tablet PO 08/29/24 22:58 Q6H PRN Fever >99.5 Acetaminophen 1,000 mg 07/31/24 07:02 08/02/24 03:35 Acetaminophen 500 Mg Tablet PO 08/29/24 22:58 1,000 mg Q6H PRN Administration PAIN SCALE 1-3 (mild Hydrocodone Bitart/Acetaminophen 1 tab 07/30/24 23:09 08/01/24 19:10 Hydrocodone/Apap 5/325 Tablet PO 08/04/24 23:08 1 tab Q6HR PRN Administration PAIN SCALE 4-10(Mod-Sev Atorvastatin Calcium 20 mg 07/31/24 21:00 08/01/24 21:39 Atorvastatin Calcium 20 Mg Tablet PO 08/30/24 20:59 20 mg HS EDDIE Administration Dextrose 25 ml 07/30/24 23:03 Dextrose 50%-Water Inj 50 Ml Syringe IV 08/29/24 23:02 Q15MIN PRN BG 50-70 responsive npo pt Dextrose 50 ml 07/30/24 23:03 Dextrose 50%-Water Inj 50 Ml Syringe IV 08/29/24 23:02 Q15MIN PRN BG <50 OR BG <70 & pt unresponsive Folic Acid 1 mg 07/31/24 09:00 08/02/24 08:07 Folic Acid 1 Mg Tablet PO 08/05/24 08:59 1 mg BID EDDIE Administration Gabapentin 100 mg 08/01/24 07:45 08/02/24 05:44 Gabapentin 100 Mg Capsule PO 08/31/24 07:44 100 mg TID EDDIE Administration Glucagon 1 mg 07/30/24 23:03 Glucagon Inj 1 Mg Vial IM Q15MIN PRN BG <70, and no IV access Insulin Human Lispro 0 unit 07/31/24 07:30 08/02/24 11:25 Insulin Lispro (Admelog) 1 Unit/0.01 Ml Unit SC 08/30/24 07:29 Not Given AC EDDIE Protocol Lactulose 10 gm 08/01/24 11:51 Lactulose Syrup 20 Gm/30 Ml Udc PO 08/31/24 20:59 BID PRN constipation Protocol Lisinopril 20 mg 07/31/24 09:00 08/02/24 09:10 Lisinopril 20 Mg Tablet PO 08/30/24 08:59 20 mg QDAY EDDIE Administration Lorazepam 0.5 mg 07/30/24 22:59 08/02/24 05:44 Lorazepam 0.5 Mg Tablet PO 08/04/24 22:58 0.5 mg Q4HR PRN Administration CIWA Score 2-6 Lorazepam 0.5 mg 07/30/24 22:59 08/02/24 08:08 Lorazepam 2 Mg/Ml Vial IV 08/04/24 22:58 0.5 mg Q2HR PRN Administration CIWA SCORE 7-13 Lorazepam 1 mg 07/30/24 22:59 08/01/24 03:53 Lorazepam 2 Mg/Ml Vial IV 08/04/24 22:58 1 mg Q2HR PRN Administration CIWA SCORE 14-19 Lorazepam 2 mg 07/30/24 22:59 08/01/24 06:36 Lorazepam 2 Mg/Ml Vial IV 08/04/24 22:58 2 mg Q2HR PRN Administration CIWA SCORE 20-25 Morphine Sulfate 2 mg 07/30/24 23:09 08/02/24 00:25 Morphine Sulf Inj 10 Mg/Ml Vial IVP 2 mg Q4H PRN Administration BREAKTHROUGH PAIN Ondansetron HCl 4 mg 07/30/24 22:59 Ondansetron Inj 2 Mg/Ml Inj 2 Ml IVP 08/29/24 22:58 Q6H PRN NAUSEA OR VOMITING Protocol Thiamine HCl 100 mg 07/31/24 09:00 08/02/24 08:07 Thiamine 100 Mg Tablet PO 08/05/24 08:59 100 mg BID EDDIE Administration Plan Papi Irvin is a 43-year-old male with past medical history of hypertension, hyperlipidemia, type 2 diabetes mellitus who presented to the ED for seizures in the setting of alcohol withdrawal and admitted for management further management #Alcohol withdrawal-improving #Alcohol use disorder #Seizure in setting of alcohol withdrawal-resolved Usually drinks ~12 packs of 24 ounce beers daily but drank 1 beer on 07/30 as he is trying to cut down. Reported to have experienced a seizure around 2 PM with no urinary or bowel incontinence but endorsed tongue biting and fall that likely led to shoulder injury. Last drink was a 24 hour beer at 8 AM on 07/30/2024. ? CIWA protocol ? currently Gabapentin 100 mg three times daily as a longer-acting agent to help manage alcohol withdrawal. The plan is to gradually taper medications as the patient stabilizes ? Seizure precautions ? Folic acid and thiamine #Acute kidney injury-resolved ? DC maintenance fluids ? Avoid nephrotoxic agents if possible, renally dose medications #Hypertension ? Lisinopril 20 mg p.o. daily #Hyperlipidemia ? Atorvastatin 20 mg p.o. at bedtime #Type 2 diabetes mellitus A1c 5.8% on 07/31. ? SSI ? Hypoglycemia protocol in place Hospital management: Disposition: Telemetry for alcohol withdrawal and TEMI Fluids:none Diet: Carbohydrate consistent Lines: PIV DVT prophylaxis: CODE STATUS: full code Patient care was discussed with attending physician Dr. Lorenzo Shabazz MD PGY-2 I have carefully reviewed this document. Due to imperfections in the voice software, there could be grammatical errors including phonetic/typographic errors. This in no way compromises the medical care the patient is receiving
[2024-08-02] MEDS: HEPARIN SOD INJ 5000 UNIT/ML VIAL SC ×2 (14:48→21:20)
[2024-08-02] MEDS: HYDROcodone/APAP 5/325 TABLET 1 TAB PO (15:08)
--- NOTE | 2024-08-02 21:18 | PC.NURSE ---
report received from ashley Cardozo pt to be transferred to [id number]
[2024-08-02] MEDS: ATORVASTATIN CALCIUM 20 MG TABLET PO (21:19)
--- NOTE | 2024-08-02 23:54 | PD.VPROG1 ---
Telemedicine visit statement This visit was conducted with the use of interactive audio and video telecommunications system that permits real time communication between the patient and the provider. Patient's verbal consent for virtual visit was obtained on 08/01/24 at 2354. Documentation for date of: 08/01/24 Subjective Subjective Interval history: Patient is in telemetry, no sz or significant tremors after admission. able to feed himself. Virtual exam Vital Signs Temp Pulse Resp BP Pulse Ox O2 Del Method O2 Flow Rate 98.9 F 83 22 H 148/93 H 98 Nasal Cannula 2 08/02/24 20:00 08/02/24 20:00 08/02/24 20:00 08/02/24 20:00 08/02/24 20:00 08/02/24 20:00 08/02/24 20:00 Objective Labs 08/03/24 05:17 08/03/24 05:17 Labs: Laboratory Results - last 24 hr 08/02/24 05:19 WBC 7.6 RBC 3.48 L Hgb 11.7 L Hct 32.7 L MCV 94 MCH 33.6 MCHC 35.8 RDW Std Deviation 38.0 Plt Count 118 L Neut % (Auto) 62 Lymph % (Auto) 21 [place] % (Auto) 15 H Eos % (Auto) 1 Baso % (Auto) 1 Neut # (Auto) 4.7 Lymph # (Auto) 1.6 [place] # (Auto) 1.2 H Eos # (Auto) 0.1 Baso # (Auto) 0.1 Immature Gran # (Auto) 0.02 H Absolute Nucleated RBC 0.00 Immature Gran % 0 Nucleated RBC % 0 Sodium 138 Potassium 3.7 D Chloride 96 L Carbon Dioxide 30.7 Anion Gap 11 BUN 11 Creatinine 0.8 Estim Creat Clear Calc 119.0 eGFR > 60 BUN/Creatinine Ratio 14 Glucose 107 H Calculated Osmolality 275 Calcium 9.2 Corrected Calcium 9.2 Phosphorus 2.9 Magnesium 1.5 L Total Bilirubin 1.7 H ALT 39 Alkaline Phosphatase 83 Total Protein 6.8 Albumin 4.3 Globulin 2.5 Albumin/Globulin Ratio 1.7 Assessment & Plan Assessment 1) Alcohol withdrawal seizure: Status: Acute Assessment and plan: no sz after admission continue with CIWA protocol, thiamine and folic acid sz precautions. (2) Fracture, humerus: Status: Acute Assessment and plan: inoperable per Ortho continue with pain control (3) Hypertension: Status: Acute Assessment and plan: continue aggressive BP mgt (4) Diabetes mellitus: Status: Acute Assessment and plan: under control as per the last A1C under 6
--- NOTE | 2024-08-02 23:54 | PD.NEUROPROG ---
Documentation for date of: 08/02/24 Subjective Subjective Interval history: Patient was seen in telemetry today. No seizures reported after admission. No tremors either. Tolerating oral diet well Exam - Neurology Vital Signs Temp Pulse Resp BP Pulse Ox O2 Del Method O2 Flow Rate 98.9 F 83 22 H 148/93 H 98 Nasal Cannula 2 08/02/24 20:00 08/02/24 20:00 08/02/24 20:00 08/02/24 20:00 08/02/24 20:00 08/02/24 20:00 08/02/24 20:00 Narrative Exam GENERAL APPEARANCE: Well developed, well-nourished in no acute distress. HEENT: Normocephalic, atraumatic, extraocular movements intact. Pupils: Equal reacting to light and accommodation NECK: Supple, no JVD or bruits. CARDIOVASULAR: Heart: S1, S2 heard, regular without S3-S4 or murmur no rubs or gallops. LUNGS/CHEST: Clear to auscultation bilaterally. No rails, rhonchi, or wheezing. Normal inspection. ABDOMEN: Soft, nontender, with normal bowel sounds. No pulsatile masses. No rebound, rigidity, or guarding. Normal inspection and palpation. EXTREMITIES: Normal inspection and palpation. No edema, clubbing or cyanosis. SKIN: Warm and dry without rashes. Normal inspection. MUSCULOSKELETAL: No cervical, thoracic, lumbar or midline bony tenderness. Normal inspection. NEURO: Alert, awake and oriented x3. Cranial nerves: II through XII grossly intact. Speech and language: Normal with no dysarthria or dysphasia. Motor system: Tone and bulk: Normal: Strength: 5 out of 5 in all 4 extremities, restricted ROM in the left shoulder from pain and echymosis; Deep tendon reflexes: 1+ bilaterally symmetrical. Plantar reflex: Downgoing bilaterally. Sensory system: Intact to all modalities of sensation bilaterally. Coordination: Intact to [id number] and gpsp-[id number]-[id number] test bilaterally. No ataxia, no dysmetria, or dysdiadochokinesia noted. No intention tremors noted. Gait: Not tested. No signs of meningeal irritation noted. PSYCHIATRIC: Normal mood and affect. Objective Labs 08/03/24 05:17 08/03/24 05:17 Labs: Laboratory Results - last 24 hr 08/02/24 05:19 WBC 7.6 RBC 3.48 L Hgb 11.7 L Hct 32.7 L MCV 94 MCH 33.6 MCHC 35.8 RDW Std Deviation 38.0 Plt Count 118 L Neut % (Auto) 62 Lymph % (Auto) 21 [place] % (Auto) 15 H Eos % (Auto) 1 Baso % (Auto) 1 Neut # (Auto) 4.7 Lymph # (Auto) 1.6 [place] # (Auto) 1.2 H Eos # (Auto) 0.1 Baso # (Auto) 0.1 Immature Gran # (Auto) 0.02 H Absolute Nucleated RBC 0.00 Immature Gran % 0 Nucleated RBC % 0 Sodium 138 Potassium 3.7 D Chloride 96 L Carbon Dioxide 30.7 Anion Gap 11 BUN 11 Creatinine 0.8 Estim Creat Clear Calc 119.0 eGFR > 60 BUN/Creatinine Ratio 14 Glucose 107 H Calculated Osmolality 275 Calcium 9.2 Corrected Calcium 9.2 Phosphorus 2.9 Magnesium 1.5 L Total Bilirubin 1.7 H ALT 39 Alkaline Phosphatase 83 Total Protein 6.8 Albumin 4.3 Globulin 2.5 Albumin/Globulin Ratio 1.7 Assessment & Plan Assessment and plan (1) Alcohol withdrawal seizure: Status: Acute Assessment and plan: no sz after admission continue with CIWA protocol, thiamine and folic acid sz precautions. (2) Fracture, humerus: Status: Acute Assessment and plan: inoperable per Ortho continue with pain control (3) Hypertension: Status: Acute Assessment and plan: continue aggressive BP mgt (4) Diabetes mellitus: Status: Acute Assessment and plan: under control as per the last A1C under 6 Additional Assessment & Plan Additional Plan: Mr. Irvin is a 31-year male with past medical history of alcohol use disorder, HTN, DMT2, and concern for seizure disorder who was in his general state of health until the afternoon of admission where he had a witnessed seizure in his car. He reports that he bit his tongue, and is reported that it appeared he had a generalized tonic-clonic seizure. He himself reports fairly light alcohol use of 1-2 beers per day, and he attributes his drinking to life stress including work and his unhappy . Per documentation, notes that he has been binge drinking over the last week with last drink the evening prior to admission. In the ER, vitals were stable, labs reassuring, and he is noted to be COVID-positive. On admission his CIWA score was 2. CT head negative for acute change. Alcohol withdrawal seizure -Continue CIWA protocol -Has history of prior seizures, may also be related to alcohol withdrawal -Recommend abstinence from alcohol, and counseled as such -Continue thiamine replacement -Discontinued Keppra, not medically indicated at this time -EEG: Showed normal study without any epileptiform discharges. -MRI brain showed scattered punctate white matter changes, suspicious for demyelination. But most likely secondary to chronic small vessel disease. -Do not think that he needs additional work-up including lumbar puncture at this point. Other disease processes: Hypertension: Continue with amlodipine,lisinopril and hydrochlorothiazide Transaminitis: Secondary to alcoholic hepatitis Covid: Continue to monitor his oxygenation DMT2: Continue to keep the diabetes under control. Dispo: Neurology work-up is complete, patient is stable from neurology standpoint.
--- NOTE | 2024-08-02 23:56 | PC.NURSE ---
SPOKE WITH DR. ROME IN REGARDS TO HIGH BP 176/112, HR 83. MD TO PLACE NEW ORDERS. PER HUGH BARAJAS RN, OK TO PUSH LABETOLOL FOR M/T PT. AWARE.
[2024-08-03] VITALS (8 sets, daily range): BP systolic 135–176; BP diastolic 98–112; PULSE 75–96; RESP 18–96; TEMP 36.2–36.6; O2SAT 97–100; BMI 31.6
[2024-08-03] MEDS: LABETALOL INJ 5 MG/ML VIAL 20 ML IVP (00:28)
[2024-08-03] MEDS: HYDROcodone/APAP 5/325 TABLET 1 TAB PO (00:33)
[2024-08-03] MEDS: HEPARIN SOD INJ 5000 UNIT/ML VIAL SC (05:18)
[2024-08-03] MEDS: GABAPENTIN 100 MG CAPSULE PO (05:18)
[2024-08-03 05:44] LABS: Basophils # (Auto) 0.1 Thou/mm3 (0.0-0.2); Basophils % (Auto) 1 % (0-2.5); Eosinophils # (Auto) 0.1 Thou/mm3 (0.0-0.5); Eosinophils % (Auto) 1 % (0-10); Hematocrit 32.3 % (41.0-53.0); Hemoglobin 11.4 g/dL (13.5-16.0); Immature Granulocytes % (Auto) 1 % (0-0); Immature Granulocytes Auto 0.06 Thou/mm3 (0.00-0.00); Lymphocytes # (Auto) 1.5 Thou/mm3 (1.0-4.8); Lymphocytes % (Auto) 22 % (10-50); Mean Corpuscular HGB Conc 35.3 g/dl (31.0-37.0); Mean Corpuscular Hemoglobin 34.1 pg (25.0-35.0); Mean Corpuscular Volume 97 fL (80-100); Monocytes # (Auto) 1.1 Thou/mm3 (0.0-0.8); Monocytes % (Auto) 16 % (0-12); Neutrophils % (Auto) 59 % (37-80); Nucleated Red Blood Cell % 0 /100 WBC (0); Platelet Count 143 Thou/mm3 (140-440); RDW Standard Deviation 39.3 fL (35.1-43.9); Red Blood Count 3.34 Miln/mm3 (4.50-5.90); White Blood Count 6.8 Thou/mm3 (3.8-10.6)
[2024-08-03 06:19] LABS: Alanine Aminotransferase 38 U/L (10-49); Albumin, Serum 4.3 gm/dL (3.5-5.0); Albumin/Globulin Ratio 1.8 (1.2-2.2); Alkaline Phosphatase 82 U/L (46-116); Anion Gap 8 (7-16); BUN/Creatinine Ratio 11 Ratio (12-20); Bilirubin,Total 1.1 mg/dL (0.3-1.2); Blood Urea Nitrogen 9 mg/dL (9-23); Calcium 9.2 mg/dL (8.3-10.6); Calcium (Corrected) 9.2 mg/dL (8.5-10.1); Carbon Dioxide 29.5 mMol/L (20.0-31.0); Chloride 100 mMol/L (98-107); Creatinine (Component) 0.8 mg/dL (0.6-1.3); Globulin 2.4 gm/dL (2.3-3.5); Glucose 112 mg/dL (74-106); Osmolality,Calculated 273 (275-295); Potassium 3.9 mMol/L (3.4-5.1); Sodium 137 mMol/L (136-145); Total Protein 6.7 gm/dL (5.7-8.2); eGFR > 60 See Note
[2024-08-03] MEDS: Lisinopril 20 MG TABLET PO (08:10)
[2024-08-03] MEDS: FOLIC ACID 1 MG TABLET PO (08:10)
[2024-08-03] MEDS: THIAMINE 100 MG TABLET PO (08:10)
[2024-08-03 08:37] LABS: Magnesium 1.5 mg/dL (1.6-2.6)
--- NOTE | 2024-08-03 11:57 | ESDS_ITS ---
<Statement entered by Isamar Mayorga DO - 08/04/24 07:30> I, Isamar Mayorga DO, attest that I was physically present for the maciel portions of the service and evaluated the patient with the resident and I reviewed and discussed the case with the resident and agree with the resident's findings and plans of care as documented above Planned Discharge Date 08/03/24 DS: Providers Provider Date of admission: 07/30/24 22:59 Primary care physician: Per Reyez MD Admitting Provider: Danny Salcido MD Attending Provider on Admission: Danny Salcido MD Consults: 07/30/24 23:04 Consult to Neurology / Tele-Neurology Stat Comment: Consulting Provider: Esteban Del Rio 07/30/24 23:12 Referral Physical Therapy Stat Comment: Physician Instructions: 07/31/24 05:21 Referral Speech Therapy Stat Comment: 07/31/24 09:45 Consult to Orthopedic Routine Comment: Consulting Provider: Anish Arias Attending Provider on DC: Hung Rodríguez MD Discharging Provider: Hung Rodríguez MD DS: Diagnosis Problem List Completed Was Problem List Reviewed/Reconciled?: Yes Hospital Course Hospital Course Hospital course: Papi Irvin is a 43-year-old male with past medical history of hypertension, hyperlipidemia, type 2 diabetes mellitus who presented to the ED for seizures in the setting of alcohol withdrawal and admitted for management of the same. He usually drinks a 12 pack of 24 ounce beers daily, but suddenly decreased his intake to 2-3 beers per day. Developed a seizure but no urinary or bowel incontinence, tongue biting, or tonic-clonic movements were seen but did have a fall that caused an injury to his left shoulder. He does endorse having had seizures in the past approximately 5 years ago. In the ED, imaging of his oulder showed an acute humeral fracture for which ortho was consulted and stated that the fracture was non-operable. Otherwise, neurology was consulted for his seizures and started on CIWA protocol for EtOH withdrawal. On his second hospital night, he developed a CIWA score of 23 for which phenobarbital was administered by overnight associate with significant improvement in withdrawal symptoms. Gabapentin 100 mg 3 times daily was also started for longer acting agent to help manage withdrawal. Patient evaluated by neurology who did not recommend any antiepileptics. After C above 23, CIWA scores had remained significantly improved as on day of discharge last 24-hour CIWA score was between 0 and 3 and Ativan given in a.m. the day prior. Thus, patient was deemed stable for discharge given that he had returned to his baseline with recommendations to taper his alcohol intake and to follow-up with Ortho for his humeral fracture. Diagnoses during admission: #Alcohol withdrawal-improving #Alcohol use disorder #Seizure in setting of alcohol withdrawal-resolved #Acute kidney injury-resolved #Hypertension #Hyperlipidemia #Type 2 diabetes mellitus Discharge instructions: ? Continue taking all home medications as prescribed ? If you are interested in cessation of your drinking, please ask your PCP for resources and/or medications ? Follow-up with PCP and obtain referral to orthopedic surgeon for your humeral fracture ? Follow-up with PCP within 1-2 weeks of discharge ? Return to ED if symptoms worsen or recur ? Contin?e tomando todos los medicamentos recetados en casa. ? Si desea dejar de beber, consulte con solares m?dico de cabecera sobre recursos o medicamentos. ? Heaven un seguimiento con solares m?dico de cabecera y obtenga yan derivaci?n a un cirujano ortop?dico para solares fractura de h?edwin. ? [place] un seguimiento con solares m?dico de cabecera dentro de 1 a 2 semanas despu?s del paul. ? Regrese a urgencias si los s?ntomas empeoran o reaparecen. ----- Plan discussed with attending physician Dr. Tierra Rodríguez MD PGY-1 Internal Medicine Time Spent with Patient Time attestation: Total time spent providing and/or coordinating discharge services: Time spent: Greater than 30 minutes Exam Vital Signs Temp Pulse Resp BP Pulse Ox O2 Del Method O2 Flow Rate 97.1 F 88 19 165/99 H 98 High Flow Nasal Cannula 2 08/03/24 08:00 08/03/24 08:55 08/03/24 08:55 08/03/24 08:10 08/03/24 08:00 08/03/24 08:00 08/03/24 08:00 Narrative Exam General: AOx3, mild distress from pain, able to speak full sentences, left arm in sling HEENT: NC/AT, mucous membranes moist, bilateral sclera anicteric Cardiovascular: regular rate and rhythm, S1/S2 present, no murmurs appreciated Pulmonary: clear to auscultation bilaterally, no rales/rhonchi/wheezes Abdominal: soft, non-tender, non-distended, no rebound/guarding, normal bowel sounds present Musculoskeletal: left arm swollen with bruising noted in posterior aspect, in sling with limited ROM Skin: bruising noted in posterior LUE Neuro: CN II-XII intact, no focal deficits; no tremor when holding right arm outstretched Discharge Plan Plan Patient Disposition: HOME (Self Care) Patient condition on transfer: Stable Care Plan Goals: ? Continue taking all home medications as prescribed ? If you are interested in cessation of your drinking, please ask your PCP for resources and/or medications ? Follow-up with PCP and obtain referral to orthopedic surgeon for your humeral fracture ? Follow-up with PCP within 1-2 weeks of discharge ? Return to ED if symptoms worsen or recur ? Contin?e tomando todos los medicamentos recetados en casa. ? Si desea dejar de beber, consulte con solares m?dico de cabecera sobre recursos o medicamentos. ? [place] un seguimiento con solares m?dico de cabecera y obtenga yan derivaci?n a un cirujano ortop?dico para solares fractura de h?edwin. ? Heaven un seguimiento con solares m?dico de cabecera dentro de 1 a 2 semanas despu?s del paul. ? Regrese a urgencias si los s?ntomas empeoran o reaparecen. Prescriptions/Referrals Prescriptions/Med Rec: New hydrocodone-acetaminophen 5-325 mg tablet 1 tab PO Q6H MDD 4 Qty: 12 0RF Continued hydrochlorothiazide 50 mg Tablet 50 mg PO QDAY metformin 1,000 mg Tablet 1,000 mg PO BID lisinopril 40 mg Tablet 40 mg PO QDAY atorvastatin 20 mg Tablet 20 mg PO QDAY hydralazine 25 mg Tablet 25 mg PO QID thiamine HCl (vitamin B1) 100 mg tablet 100 mg PO QDAY 90 Days Qty: 90 1RF folic acid 1 mg tablet 1 mg PO QDAY 90 Days Qty: 90 1RF Referrals: Per Reyez MD [Primary Care Provider] - Anish Arias MD [Physician] - Patient/Caregiver Discharge Instructions Education Materials: Alcohol Withdrawal: What to Expect Print Language: Ukrainian Stand Alone Forms: Angy Award Info., Patient Portal Info Letter Discharge Order Discharge Orders: Discharge (Routine); Ordered 08/03/24 Ordered By: Hung Rodríguez Quality Discharge Quality Measures VTE prophylaxis
--- NOTE | 2024-08-03 12:09 | PC.NURSE ---
Patient Discharging. Last Vitals 172/108 blood pressure, 96 heart rate. Patient is having a lot of pain in shoulder due to his fracture. Does not want to take pain medicine at this time. Patient wants to leave and take pain medicince at home. Contacted Dr. Mayorga and made aware. okayed to discharge.
== END 2024-08-03 12:50 | disposition home or self-care (01) | DRG 775 ==
LOC: SERX 19:41 → SERHOLD 23:17 → S2NX 23:59 → S3NX 08-02 21:30
PROVIDERS: Physician Assistant; Student in an Organized Health Care Education/Training Program; Admitting Provider Student in an Organized Health Care Education/Training Program; Emergency Provider Emergency Medicine; PCP Family Medicine; Visit Provider Student in an Organized Health Care Education/Training Program
DX: F10.139 Alcohol abuse with withdrawal, unspecified (principal); G40.509 Epileptic seizures related to external causes, not intractable, without status epilepticus; K70.30 Alcoholic cirrhosis of liver without ascites; I10 Essential (primary) hypertension; E11.9 Type 2 diabetes mellitus without complications; E78.5 Hyperlipidemia, unspecified; W19.XXXA Unspecified fall, initial encounter; Y90.0 Blood alcohol level of less than 20 mg/100 ml; S42.212A Unspecified displaced fracture of surgical neck of left humerus, initial encounter for closed fracture; N17.9 Acute kidney failure, unspecified; G47.33 Obstructive sleep apnea (adult) (pediatric); K70.10 Alcoholic hepatitis without ascites; R09.02 Hypoxemia; Z79.899 Other long term (current) drug therapy; Z79.84 Long term (current) use of oral hypoglycemic drugs
CPT/HCPCS: 36415; 70450; 73030; 80053; 80307; 80320; 82140; 83036; 83605; 83735; 84100; 85025; 85610; 85730; 87081; 92610; 93225; 96374; 96375; 97162; 99285; A4216; J1644; J2060; J2270; J2405; J2560; J3411; J3475; J3490; J7120; A9270; G0480; J1920

== ENCOUNTER 2024-08-05 06:05 | Emergency (ER) | payer MEDICAID, SELFPAY ==
[2024-08-05 06:06] VITALS: BP 171/100; PULSE 85; RESP 17; TEMP 36.8; O2SAT 99
[2024-08-05] MEDS: KETOROLAC INJ 60 MG/2 ML VIAL 30 MG IM (07:00)
--- NOTE | 2024-08-05 07:02 | EDNOTE_ITS ---
Upper Extremity Injury RME/HPI General Chief Complaint: Extremity Injury, Upper Stated Complaint: Left shoulder pain Time Seen by Provider: 08/05/24 06:39 Source: patient Arrival date/time: 08/05/24 06:05 43-year-old male with a history of hyperlipidemia type 2 diabetes and hypertension presents to the emergency room with a chief complaint of pain and tenderness to his left shoulder. Patient states he has a fracture to his left shoulder but his primary care provider is not able to see him into August. Mode of arrival: ambulatory Limitations: no limitations Related Data Home Medications ?Medication ?Instructions ?Recorded ?Confirmed hydrochlorothiazide 50 mg tablet 50 mg PO QDAY 3 08/02/24 lisinopril 40 mg tablet 40 mg PO QDAY 10/25/2208/02 metformin 1,000 mg tablet 1,000 mg PO BID 10/25/2210/19 atorvastatin 20 mg tablet 20 mg PO QDAY 07/15/2308/02 hydralazine 25 mg tablet 25 mg PO QID 07/15/23 Previous Rx's ?Medication ?Instructions ?Recorded folic acid 1 mg tablet 1 mg PO QDAY 3 months #90 ta bs 07/17/23 thiamine HCl (vitamin B1) 100 mg 100 mg PO QDAY 3 giovanna hs #90 tabs 07/17/23 tablet hydrocodone 5 mg-acetaminophen 325 1 tab PO Q6H #12 ta bs 08/03/24 mg tablet hydrocodone 5 mg-acetaminophen 325 1 tab PO BID PRN pa in #10 tabs 08/05/24 mg tablet Allergies Allergy/AdvReac Type Severity Reaction Status Date / Time No Known Allergies Allergy Verified 07/30/24 18:15 Review of Systems Review of Systems Systems Reviewed: All systems reviewed, normal except as documented Constitutional Constitutional: Reports system reviewed and no additional complaints, except as documented, Denies fatigue, Denies fever(s), Denies headache(s) and Denies weakness Eyes Eyes: Reports system reviewed and no additional complaints, except as documented, Denies blurry vision and Denies change in vision ENT Ears, Nose, Mouth, and Throat: Reports system reviewed and no additional complaints, except as documented, Denies otalgia, Denies headache(s), Denies nasal congestion, Denies throat swelling and Denies vertigo Cardiovascular Cardiovascular: Reports system reviewed and no additional complaints, except as documented, Denies chest pain, Denies dyspnea and Denies dyspnea on exertion Respiratory Respiratory: Reports system reviewed and no additional complaints, except as documented, Denies chest congestion, Denies cough, Denies dyspnea, Denies dyspnea on exertion and Denies wheezing Gastrointestinal Gastrointestinal: Reports system reviewed and no additional complaints, except as documented, Denies abdominal pain, Denies cramping, Denies nausea and Denies vomiting Genitourinary Genitourinary: Reports system reviewed and no additional complaints, except as documented, Denies dysuria and Denies hematuria Musculoskeletal Musculoskeletal: Reports system reviewed and no additional complaints, except as documented, Reports arthralgias, Denies back pain and Reports joint swelling Integumentary/Breasts Skin/Breast: Reports system reviewed and no additional complaints, except as documented and Denies wounds Neurologic Neurologic: Reports system reviewed and no additional complaints, except as documented, Denies confusion, Denies headache(s), Denies lack of coordination, Denies vertigo and Denies weakness Psychiatric Psychiatric: Reports system reviewed and no additional complaints, except as documented, Denies anxiety, Denies confusion, Denies depression, Denies paranoia, Denies suicidal ideation and Denies tactile hallucinations Endocrine Endocrine: Reports system reviewed and no additional complaints, except as documented and Denies fatigue Hematologic/Lymphatic Hematologic/Lymphatic: Reports system reviewed and no additional complaints, except as documented and Denies lymphadenopathy Allergic/Immunologic Allergic/Immunologic: Reports system reviewed and no additional complaints, except as documented, Denies throat swelling, Denies urticaria and Denies wheezing Past Medical History Past Medical History NEUROLOGIC: Positive Seizures CARDIAC: Positive Hypercholesterolemia and Hypertension; Negative Congestive Heart Failure RESPIRATORY: Negative Chronic Obstructive Pulmonary Disease (COPD) GENITOURINARY: Negative Renal Disease ENDOCRINE: Positive Diabetes Mellitus Type 2; Negative Diabetes Mellitus Type 1 Social History SMOKING STATUS: Never smoker ED Exam General Limitations: Present no limitations General appearance: Present alert and in no apparent distress Head Head exam: Present atraumatic Eye Eye exam: Present normal appearance, PERRL and EOMI ENT ENT exam: Present normal exam, normal oropharynx and mucous membranes moist Neck Neck exam: Present normal inspection, full ROM and trachea midline Chest Chest inspection: Present normal inspection and symmetric chest wall rise Respiratory Respiratory exam: Present normal lung sounds bilaterally Cardiovascular Cardiovascular exam: Present regular rate, normal rhythm and normal heart sounds Abdominal Exam Abdominal exam: Present soft and normal bowel sounds Extremities Exam Extremities exam: Present normal inspection and full ROM Expanded Upper Extremity Exam Shoulder exam: Present tenderness, swelling, deformity and tenderness over AC joint; Absent full ROM Arm exam: Present normal inspection Elbow exam: Present normal inspection Forearm/Wrist exam: Present normal inspection Hand exam: Present normal inspection Vascular exam: Normal capillary refill Back Exam Back exam: Present normal inspection and full ROM Neurological Exam Neurological exam: Present alert, oriented X3 and CN II-XII intact Psychiatric Psychiatric exam: Present normal affect and normal mood Skin Skin exam: Present warm, dry, intact and normal color Course Quality Measures none Orders Category Date Time Status immobilizer [Splint / Immobilizer] STAT Care 08/05/24 06:38 Active Ketorolac Inj [Toradol Inj] Med 08/05/24 06:38 Discontinued 30 mg IM X1 ONE Vital Signs Vital signs: Vital Signs Temperature 98.2 F 08/05/24 06:06 Pulse Rate 85 08/05/24 06:06 Respiratory Rate 17 08/05/24 06:06 Blood Pressure 171/100 H 08/05/24 06:06 Pulse Oximetry (%) 99 08/05/24 06:06 Oxygen Delivery Method Room Air 08/05/24 06:06 Extremity Injury MDM Narrative MDM Narrative:: 43-year-old male with a history of hyperlipidemia type 2 diabetes and hypertension presents to the emergency room with a chief complaint of pain and tenderness to his left shoulder. Patient states he has a fracture to his left shoulder but his primary care provider is not able to see him into August. Patient is hemodynamically stable and in no apparent distress Physical examination shows tenderness swelling bruising to his left shoulder. The patient came in with a sling and states that his shoulder is still hurting him a lot and he does not have any pain medication. I switched him from a sling to a shoulder immobilizer. Pain medication was sent to his pharmacy. And Dr Johnson. With field applications specialist on-call was consulted and he will see the patient tomorrow at 11 AM in his office. Patient was discharged and educated to follow-up with primary care provider in the next 24 to 48 hours and return to the emergency room for any evidence of worsening signs or symptoms Patient data External records reviewed:: [facility] previous records Clinical information provided by:: patient Social determinants that could affect healthcare access:: none Patient has the following chronic illnesses:: No chronic illness How is presenting disease/condition affected by chronic disease/condition?: no chronic disease Evaluation data The following diagnostics were reviewed and interpreted by me:: lab results and radiology exam(s) Lab and/or radiology exams considered but not ordered:: Labs and radiology exams considered in order Interpretation Summary: X-ray shoulder-FINDINGS: Acute comminuted fracture humeral neck without significant displacement No shoulder dislocation IMPRESSION: Acute comminuted fracture humeral neck Medications / Prescriptions Medications or Prescriptions considered but not ordered:: Medication given Medication administrations:: Medication Administration History Discontinued Medications Ketorolac Tromethamine (Ketorolac Inj 60 Mg/2 Ml Vial) 30 mg IM X1 ONE Stop: 08/05/24 06:39 Last Admin: 08/05/24 07:00 Dose: 30 mg Documented By: SF Medication given Consultations Consultation(s) initiated? (list below): No Diagnosis Upper Extremity Injury Differential Diagnosis: dislocation of shoulder and other (Acute comminuted fracture of the humeral head) Most likely diagnosis given after review of the tests above:: Acute comminuted fracture of the humeral head Admission Indicated Admission indicated?: not indicated Admission Request Was there a request for admission?: No Disposition Plan Disposition Plan: Discharge Discharge Attestation Discharge Attestation: The patient and all family members were given an opportunity to ask questions and understood the discharge instructions. Discharge instructions specifically effects, indications for sooner follow up or return to the emergency department, and the expected course of current diagnosis. Patient condition: Stable Discharge Plan Plan Patient Disposition: HOME (Self Care) Discharge Disposition comment: Stable Prescriptions/Referrals Prescriptions/Med Rec: New hydrocodone-acetaminophen 5-325 mg tablet 1 tab PO BID MDD 10mg PRN (Reason: pain) Qty: 10 0RF No Action hydrochlorothiazide 50 mg Tablet 50 mg PO QDAY metformin 1,000 mg Tablet 1,000 mg PO BID lisinopril 40 mg Tablet 40 mg PO QDAY atorvastatin 20 mg Tablet 20 mg PO QDAY hydralazine 25 mg Tablet 25 mg PO QID thiamine HCl (vitamin B1) 100 mg tablet 100 mg PO QDAY 90 Days Qty: 90 1RF folic acid 1 mg tablet 1 mg PO QDAY 90 Days Qty: 90 1RF hydrocodone-acetaminophen 5-325 mg tablet 1 tab PO Q6H MDD 4 Qty: 12 0RF Referrals: Aristides Johnson MD [Physician] - 08/06/24 11:00 am Problem List Clinical Impression: Fracture of head of left humerus Patient/Caregiver Discharge Instructions Education Materials: ED Fracture, Upper Extremity, ED Fracture, Shoulder Additional Instructions: Por favor, consulte con solares m?dico de cabecera en las pr?ximas 24 a 48 horas. Habl? con el Dr. Johnson, especialista en ortopedia de helga, y lo atender? ma?beronica a las 11:00 a. m. No falte a esta bal. Se enviaron analg?sicos a solares farmacia; rec?jalos y t?melos seg?n las indicaciones. Si observa alg?n empeoramiento de los signos o s?ntomas, acuda a urgencias de inmediato. Print Language: [place] Stand Alone Forms: Angy Award Info., Patient Portal Info Letter PA/DAIRY QUALITY ASSURANCE OFFICER Supervising Physician PA/DAIRY QUALITY ASSURANCE OFFICER Supervising Physician: Dr. Dietrich
== END 2024-08-05 07:21 | disposition home or self-care (01) ==
LOC: SERX 07:28
PROVIDERS: Emergency Provider Emergency Medicine; PCP Family Medicine
DX: S42.292A Other displaced fracture of upper end of left humerus, initial encounter for closed fracture (principal); X58.XXXA Exposure to other specified factors, initial encounter
CPT/HCPCS: 96372; 99283; J1885

== ENCOUNTER → 2024-08-19 | Outpatient (CLI) | payer MEDICAID, SELFPAY ==
--- NOTE | 2024-08-19 10:38 | XR_ITS ---
Examination: Shoulder,left, 3 views Technique: Shoulder AP internal rotation, AP external rotation, Y view shoulder, 3 views Exam date and time :August 19, 2024 1041 hours Comparison July 30, 2024 INDICATIONS: History closed fracture reduction left humeral neck 3 weeks ago. FINDINGS: Abundant callus about the comminuted fracture humeral neck with stable and satisfactory alignment IMPRESSION: Abundant bony callus about the comminuted fracture humeral neck with stable and satisfactory alignment
== END | disposition home or self-care (01) ==
PROVIDERS: PCP Family Medicine; Referring Provider Orthopaedic Surgery; Visit Provider Orthopaedic Surgery
DX: M25.712 Osteophyte, left shoulder (principal); S42.212A Unspecified displaced fracture of surgical neck of left humerus, initial encounter for closed fracture; X58.XXXA Exposure to other specified factors, initial encounter
CPT/HCPCS: 73030

== ENCOUNTER → 2024-09-23 | Outpatient (CLI) | payer MEDICAID, SELFPAY ==
--- NOTE | 2024-09-23 13:22 | XR_ITS ---
Examination: Shoulder,left, 3 views Technique: Shoulder AP internal rotation, AP external rotation, Y view shoulder, 3 views Exam date and time :September 23, 2024 1337 hours, comparison August 19, 2024, July 30, 2024 INDICATIONS: Left shoulder pain, history left comminuted humeral neck fracture FINDINGS: Partial healing comminuted fractures left humeral neck with stable and satisfactory alignment IMPRESSION: Partial healing comminuted fractures left humeral neck with stable and satisfactory alignment
== END | disposition home or self-care (01) ==
LOC: SDIM 13:06
PROVIDERS: Referring Provider Orthopaedic Surgery; Visit Provider Orthopaedic Surgery
DX: S42.212D Unspecified displaced fracture of surgical neck of left humerus, subsequent encounter for fracture with routine healing (principal); X58.XXXD Exposure to other specified factors, subsequent encounter
CPT/HCPCS: 73030

== ENCOUNTER → 2024-11-10 | Outpatient (CLI) | payer MEDICAID, SELFPAY ==
--- NOTE | 2024-11-10 15:22 | XR_ITS ---
Examination: Shoulder,left, 3 views Technique: Shoulder AP internal rotation, AP external rotation, Y view shoulder, 3 views Exam date and time :November 10, 2024 1526 hours INDICATIONS: History closed reduction left humerus fracture July 30, 2024 FINDINGS: Significant healing fracture humeral neck with stable and satisfactory alignment IMPRESSION: Significant healing fracture humeral neck compared with July 30, 2024
== END | disposition home or self-care (01) ==
LOC: SDIM 15:15
PROVIDERS: Referring Provider Orthopaedic Surgery; Visit Provider Orthopaedic Surgery
DX: S42.212D Unspecified displaced fracture of surgical neck of left humerus, subsequent encounter for fracture with routine healing (principal); X58.XXXD Exposure to other specified factors, subsequent encounter
CPT/HCPCS: 73030